=== PATIENT | male | born 1940 | race Caucasian/White ===

== ENCOUNTER 2016-05-03 13:56 | Inpatient (IN) | payer MEDICARE, BC ==
[~2016-05-03 13:56] MED LIST: ALLO300 PO; AMIO200 PO; ATOR20TA PO; DOCU1CAP39 PO; ECOT81TA2 PO; Hydrocodone/Acetaminophen PO; MAGN500T4 PO; METO25 PO; PLAV75TA PO; PROT40TA PO; THERM PO
[2016-05-03 18:00] VITALS: BP 150/84; PULSE 78; RESP 20; TEMP 98.6; O2SAT 97
[2016-05-03] MEDS ORDERED: NITROGLYCERIN 0.4 MG SL 25 TABS/BTL SL PRN (18:15)
[2016-05-03] MEDS ORDERED: ONDANSETRON HCL 4 MG/2 ML VIAL IV PUSH PRN (18:15)
[2016-05-03 19:00] VITALS: PULSE 72
[2016-05-03 20:00] VITALS: PULSE 66
[2016-05-03] MEDS: ALLOPURINOL 300 MG TAB PO SCH (20:00)
[2016-05-03 21:00] VITALS: BP 160/85; PULSE 62; PULSE 78; RESP 20; TEMP 98; O2SAT 97
[2016-05-03] MEDS: ATORVASTATIN 20 MG TAB PO SCH (21:00)
[2016-05-03] MEDS: NITROGLYCERIN 2% OINT 1 GM PACKET TOPICAL SCH (21:05)
[2016-05-03] MEDS: ATENOLOL 25 MG TAB PO SCH (21:16)
[2016-05-03] MEDS: ACETAMINOPHEN 325 MG TAB PO PRN (21:17)
[2016-05-03 22:00] VITALS: PULSE 70
[2016-05-03 23:00] VITALS: PULSE 68
[2016-05-04] VITALS (15 sets, daily range): BP systolic 78–158; BP diastolic 69–100; PULSE 62–78; RESP 18–20; TEMP 98–99; O2SAT 72–98
[2016-05-04] MEDS: NITROGLYCERIN 2% OINT 1 GM PACKET TOPICAL SCH ×4 (03:00→18:00)
[2016-05-04] MEDS ORDERED: ASPIRIN 81 MG CHEW TAB PO SCH ×2 (09:00→21:00)
[2016-05-04] MEDS: ACETAMINOPHEN 325 MG TAB PO PRN (09:34)
[2016-05-04] MEDS: ATENOLOL 25 MG TAB PO SCH (09:34)
[2016-05-04] MEDS: ALLOPURINOL 300 MG TAB PO SCH (09:35)
[2016-05-04] MEDS ORDERED: CLOPIDOGREL 75 MG TAB PO ONE (13:00)
--- NOTE | 2016-05-04 14:10 | MH ---
cc: AISHA CASTLE MD, SURYA P. MD MEYERS,MARIA ESTHER DATE OF ADMISSION: 05/03/2016 REFERRING PHYSICIAN: Dr. Jerrod Limon. HISTORY OF PRESENT ILLNESS: Mr. Roth is a very pleasant 74-year gentleman with a known history of coronary artery disease and aortic stenosis who is status post aortic valve replacement and two-vessel coronary artery bypass grafting by Dr. Valladares in July of 2015. Since that time, he has presented with recurrent episodes of chest pain and was recently evaluated by Dr. Limon at [facility] for presenting complaints of chest pain with minimal exertion and underwent a coronary angiogram on May 03, 2016 which revealed patent vein graft to the left anterior descending with a bifid initial course as well as a patent vein graft to the right coronary artery with critical ostial stenosis. He additionally had what appears to be a tissue aortic valve in place which is impinging on the left main as well as the right coronary artery ostium. Based on this, he was transferred here for further assessment and evaluation. At the present time, he is pain-free and stable with no evidence of ongoing ischemia or persistence complaints of. He denies any chest pain at the present time. PAST MEDICAL HISTORY: Significant for: 1. Aortic stenosis. 2. Coronary artery disease. 3. Hypertension. 4. Hyperlipidemia. PAST SURGICAL HISTORY: Remarkable for: 1. AVR CABG as described above in June of 2015. 2. Appendectomy. 3. Knee surgery. 4. Foot surgery. 5. Carpal tunnel release. ALLERGIES: THE PATIENT REPORTS NO KNOWN DRUG ALLERGIES EXCEPT FOR: 1. NOVOCAIN. 2. MRI PRECAUTIONS. ADMISSION MEDICATIONS: 1. Amiodarone. 2. Allopurinol. 3. Metoprolol. 4. Docusate. 5. Atorvastatin. 6. A multivitamin. 7. Aspirin. 8. Plavix. 9. Protonix. 10. Magnesium. SOCIAL HISTORY: Social history is remarkable for smoking one pack per day which he quit in 1973 as well as alcohol intake of at least one glass or wine a day. He denies any illicit drug use. REVIEW OF SYSTEMS: Review of systems as above. All other parameters are negative. PHYSICAL EXAMINATION: WEIGHT: He is 83.5 kilos. VITAL SIGNS: Blood pressure is 130/69 with a heart rate of 70 which is regular, respiratory rate is 18 and he is afebrile. HEAD, EYES, EARS, NOSE, THROAT: Normocephalic and atraumatic. Pupils round and reactive. Extraocular muscles intact. NECK: No cervical lymphadenopathy, carotid bruits or jugular venous distention. CARDIOVASCULAR: Regular rate and rhythm. Normal S1 and S2 without murmurs, rubs or gallops. LUNGS: Clear to auscultation bilaterally with good air exchange. CHEST: Well-healed median sternotomy incision with no underlying induration, erythema or dehiscence. ABDOMEN: The abdomen is soft, nontender and nondistended. Normoactive bowel sounds. No hepatosplenomegaly. EXTREMITIES: Bilateral lower extremity pulses are intact without cyanosis, clubbing or edema. No venous varicosities. NEUROLOGIC: Neurologically intact with no focal deficits. IMPRESSION: 1. Coronary artery disease. 2. Aortic stenosis status post AVR CABG. 3. Hypertension. 4. Hyperlipidemia. 5. Recurrent chest pain. PLAN: At this point, the patient is hemodynamically and clinically very stable. We will review his coronary angiograms from [facility] with Dr. Valladares. If in fact there is a percutaneous option available for the right coronary artery ostium, then that would be the ideal setting in efforts to avoid a reoperative median sternotomy; however, if that is not feasible, then he will need re-operation to bypass his right coronary artery as well as potentially to his circumflex artery. Again, will discuss this further with Dr. Valladares as well as with cardiology colleagues in terms of finding the ideal treatment modality for him. In the meantime, will maintain him in the hospital, monitor his vitals as well as his hemodynamics and further treatment depending upon above conversations. Thank you for allowing to participate in the care of this patient. Aisha ALMODOVAR /12:41 PM /12:56 PM
[2016-05-04] MEDS: ATORVASTATIN 20 MG TAB PO SCH (21:21)
[2016-05-05] VITALS (13 sets, daily range): BP systolic 130–150; BP diastolic 74–88; PULSE 64–78; RESP 17–20; TEMP 98–98.6; O2SAT 95–96
[2016-05-05] MEDS: NITROGLYCERIN 2% OINT 1 GM PACKET TOPICAL SCH ×2 (06:00)
[2016-05-05] MEDS: ALLOPURINOL 300 MG TAB PO SCH (09:32)
[2016-05-05] MEDS: ATENOLOL 25 MG TAB PO SCH (09:32)
--- NOTE | 2016-05-05 09:40 | PD.CAR.PN ---
CVT Progress Note Subjective/Hospital Course: 75/ male transfer from [facility] , HX CAD Aortic valve disease , underwent AVR with EPIC tissue valve , CABG X 2 SVG>LAD ( fair ) , SVG to RCA ( good) July [id number] by Dr Simone Valladares presented to ED [facility] recurrent episodes of chest pain with minimal exertion and underwent cardiac cath 05/03 revealed patent graft to the LAD, with patent vein graft to RCA with critical ostial stenosis cardiac films were reviewed by Dr Guan ( covering ) neg troponin, currently pain plan is to dc pt home, with f/u with Dr Valladares 05/15 copy of films and reports to Dr Valladares add imdur po Objective: GENERAL: SKIN: Warm and dry. HEAD: Normocephalic. EYES: No scleral icterus. No injection or drainage. NECK: Supple, trachea midline. No JVD or lymphadenopathy. CARDIOVASCULAR: Regular rate and rhythm without murmurs, gallops, or rubs. RESPIRATORY: Breath sounds equal bilaterally. No accessory muscle use. GASTROINTESTINAL: Abdomen soft, non-tender, nondistended. MUSCULOSKELETAL: No cyanosis, or edema. BACK: Nontender without obvious deformity. No CVA tenderness. Vital Signs Date Time Temp Pulse Resp B/P Pulse Ox O2 Delivery O2 Flow Rate FiO2 05/05/16 06:32 98.0 64 20 150/88 95 05/05/16 06:00 75 05/05/16 05:00 76 05/05/16 04:16 75 05/05/16 03:00 74 05/05/16 02:10 77 05/05/16 01:00 66 05/05/16 00:00 98.6 71 20 130/74 95 05/05/16 00:00 66 05/04/16 23:02 70 05/04/16 22:00 73 05/04/16 21:00 70 05/04/16 20:00 72 05/04/16 20:00 98.5 69 20 155/95 95 05/04/16 19:00 66 05/04/16 15:45 99.0 76 18 124/76 98 05/04/16 15:45 74 05/04/16 12:00 71 05/04/16 12:00 98.6 71 18 132/78 97 Telemetry: NSR (1) S/P AVR (aortic valve replacement) (2) S/P CABG x 2 Plan: continue plavix, ASA, statin BB (3) Recurrent chest pain Plan: add imdur f/u Dr Valladares next week Nancy Carroll May 05, 2016 09:40
[2016-05-05] MEDS ORDERED: NITR0.4S SL (09:46)
[2016-05-05] MEDS ORDERED: Aspirin Chew PO (09:46)
[2016-05-05] MEDS ORDERED: ATEN25TA PO (09:46)
[2016-05-05] MEDS ORDERED: ISOS30TA3 PO (09:48)
--- NOTE | 2016-05-05 10:13 | HHI.DS ---
Discharge Summary Admission Date May 03, 2016 at 17:51 Discharge Date: May 05, 2016 Admitting Diagnosis chest pain (1) Recurrent chest pain Diagnosis: Secondary (2) Hx of CABG Diagnosis: Principal (3) HX of AVR Diagnosis: Principal Brief History 75/ male transfer from [facility] , HX CAD Aortic valve disease , underwent AVR with EPIC tissue valve , CABG X 2 SVG>LAD ( fair ) , SVG to RCA ( good) July [id number] by Dr Simone Valladares presented to ED [facility] recurrent episodes of chest pain with minimal exertion and underwent cardiac cath 05/03 revealed patent graft to the LAD, with patent vein graft to RCA with critical ostial stenosis cardiac films were reviewed by Dr Guan ( covering ) neg troponin, currently pain Hospital Course cardiac films were reviewed by Dr Guan ( covering ) neg troponin, currently pain plan is to dc pt home, with f/u with Dr Valladares 05/15 copy of films and reports to Dr Valladares add imdur po, increase atenolol to bid Pt Condition on Discharge: Good Discharge Disposition: Discharge Home Discharge Instructions DIET: Follow Instructions for: Heart Healthy Diet Activities you can perform: Regular-No Restrictions Follow up Referrals: Appointment for Follow Up - 1 Week with Kasey Valladares MD PCP Follow-up - 2 Weeks with Gaye Morrison MD New Medications: Isosorbide Mononitrate ER (Isosorbide Mononitrate ER) 30 Mg Jose Daniel 30 MG PO DAILY Prevent Chest Pain #30 Ref 1 TAB Atenolol (Atenolol) 25 Mg Tab 25 MG PO BID Blood Pressure Management #60 Ref 1 TAB Nitroglycerin SL (Nitrostat SL) 0.4 Mg Subl 0.4 MG SL UNSCH max 3 doses within 15 min for chest pain PRN CHEST PAIN #25 BOTTLE ([Aspirin Chew]) 81 MG CHEW 81 MG PO HS #100 Ref 1 TAB.CHEW Continued Medications: Allopurinol (Zyloprim 300 Mg Tab) 300 Mg Tab 300 MG PO DAILY TAB Atorvastatin 20 mg (Atorvastatin 20 mg tab) 20 Mg Tab 20 MG PO DAILY Days 30 TAB Clopidogrel Bisulfate (Plavix) 75 Mg Tab 75 MG PO DAILY last dose was on july 10 TAB Discontinued Medications: Amiodarone HCl (Cordarone 200 Mg Tab) 200 Mg Tab 200 MG PO BID Regulate Heart Beat #28 Ref 0 TAB Aspirin (Ecotrin Low Strength) 81 Mg Tabec 162 MG PO DAILY heart Days 30 TAB.EC Docusate Sodium (Colace 100 Mg Cap) 100 Mg Cap 100 MG PO BID Constipation #28 Ref 0 CAP Magnesium (Magnesium) 500 Mg Tab 250 MG PO DIRECTED pt takes on mon,thu,thursday TAB Metoprolol Tartrate 25 mg (Metoprolol Tartrate 25 mg) 25 Mg Tab 12.5 MG PO 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
== END 2016-05-05 13:23 | disposition home or self-care (01) | DRG 303 ==
LOC: HCIN 17:51
PROVIDERS: ADMIT Thoracic Surgery (Cardiothoracic Vascular Surgery); ATTEND Thoracic Surgery (Cardiothoracic Vascular Surgery)
DX: I25.10 Atherosclerotic heart disease of native coronary artery without angina pectoris (principal); I10 Essential (primary) hypertension; E78.5 Hyperlipidemia, unspecified; Z95.1 Presence of aortocoronary bypass graft; Z87.891 Personal history of nicotine dependence; Z09 Encounter for follow-up examination after completed treatment for conditions other than malignant neoplasm; Z95.2 Presence of prosthetic heart valve

== ENCOUNTER 2016-05-28 06:33 | Day surgery (SDC) | payer MEDICARE, BC ==
[~2016-05-28] VITALS: Ht 172.7 cm; Wt 81.9 kg
[2016-05-28] VITALS (12 sets, daily range): BP systolic 120–187; BP diastolic 59–105; PULSE 56–90; RESP 16–20; TEMP 97.7–98; O2SAT 96–97
[~2016-05-28 06:33] MED LIST changes: -AMIO200 PO; +ATEN25TA PO; +Aspirin Chew PO; -DOCU1CAP39 PO; -ECOT81TA2 PO; -Hydrocodone/Acetaminophen PO; +ISOS30TA3 PO; -MAGN500T4 PO; -METO25 PO; +NITR0.4S SL; -PROT40TA PO; -THERM PO
[2016-05-28] MEDS ORDERED: ATOR20TA15 PO (07:14)
[2016-05-28] MEDS ORDERED: ALLO300T2 PO (07:14)
[2016-05-28] MEDS ORDERED: PLAV75TA29 PO (07:14)
[2016-05-28 07:25] LABS: AUTOMATED NEUTROPHIL # 5.9 TH/MM3 (1.8-7.7); BASOPHIL % 0.5 % (0.0-2.0); EOSINOPHIL # 0.1 TH/MM3 (0-0.4); EOSINOPHIL % 1.6 % (0.0-4.0); HEMATOCRIT 48.1 % (39.0-51.0); HEMO FLAGS DIFF FINAL; LYMPH % 18.1 % (9.0-44.0); LYMPHOCYTE # 1.5 TH/MM3 (1.0-4.8); MEAN CELL VOLUME 94.6 FL (80.0-100.0); MEAN CORPUSCULAR HEMOGLOBIN 31.7 PG (27.0-34.0); MEAN CORPUSCULAR HGB CONC 33.5 % (32.0-36.0); MONO % 8.4 % (0.0-8.0); NEUT % 71.4 % (16.0-70.0); PLATELET COUNT 150 TH/MM3 (150-450); RED BLOOD COUNT 5.09 MIL/MM3 (4.50-5.90); RED CELL DISTRIBUTION WIDTH 14.4 % (11.6-17.2); WHITE BLOOD COUNT 8.2 TH/MM3 (4.0-11.0)
[2016-05-28 07:35] LABS: APTT (PATIENT) 27.7 SEC (24.3-30.1); PROTHROMBIN TIME - PATIENT 11.1 SEC (9.8-11.6)
[2016-05-28 07:50] LABS: BICARBONATE 29.8 MEQ/L (21.0-32.0); POTASSIUM 3.7 MEQ/L (3.5-5.1)
[2016-05-28] MEDS ORDERED: HEPARIN-NS/PF INJ 500 ML ONE ×2 (08:22→10:05)
[2016-05-28] MEDS ORDERED: VERAPAMIL HCL 5 MG/2 ML VIAL ONE (08:23)
[2016-05-28] MEDS ORDERED: HEPARIN SODIUM - IV 10,000 UNITS/10 ML VIAL ONE ×2 (08:23→11:15)
[2016-05-28] MEDS ORDERED: MIDAZOLAM HCL 2 MG/2 ML VIAL ONE (08:23)
[2016-05-28] MEDS ORDERED: IOHEXOL 350 MG/ML 100 ML BTL (for Cath Lab) OTHER ONE (12:00)
[2016-05-28] MEDS ORDERED: MISC INFORMATION XX ONE (12:15)
[2016-05-28] MEDS ORDERED: ATROPINE SULFATE 1 MG/ML VIAL IV PRN (12:15)
[2016-05-28] MEDS ORDERED: SODIUM CHLOR 0.9% 250 ML INJ 250 ML IV PRN (12:15)
[2016-05-28] MEDS ORDERED: NITROGLYCERIN 0.4 MG SL 25 TABS/BTL SL PRN (12:15)
[2016-05-28] MEDS ORDERED: ONDANSETRON HCL 4 MG/2 ML VIAL IV PRN (12:15)
[2016-05-28] MEDS ORDERED: SODIUM CHLORIDE 0.9% FLUSH 10 ML FLUSH IV FLUSH PRN (12:15)
--- NOTE | 2016-05-28 12:16 | EKG ---
Date Performed: 05/28/2016 Time Performed: 07:47:20 PTAGE: 75 years EKG: Sinus rhythm with frequent PVCs Possible left anterior fascicular block LVH with secondary repolarization abnorma lity Extensive ST-T changes may be due to hypertrophy and/or ischemia Abnormal ECG PREVIOUS TRACING : 05/28/2016 07.31 DOCTOR: Julius Gabriel Interpretating Date/Time 05/28/2016 12:14:00
[2016-05-28] MEDS ORDERED: SODIUM CHLOR 0.9% 1000 ML INJ 1,000 ML IV SCH (12:30)
[2016-05-28] MEDS ORDERED: hydrALAZINE HCL 20 MG/ML VIAL IV PUSH PRN (12:45)
[2016-05-28] MEDS: ATENOLOL 25 MG TAB PO SCH (20:41)
[2016-05-28] MEDS: SODIUM CHLORIDE 0.9% FLUSH 10 ML FLUSH IV FLUSH SCH (20:44)
[2016-05-28] MEDS ORDERED: ASPIRIN 81 MG CHEW TAB PO SCH (21:00)
[2016-05-28] MEDS ORDERED: ATORVASTATIN 20 MG TAB PO SCH (21:00)
--- NOTE | 2016-05-28 22:56 | MA ---
cc: RANDAL ENCINAS,URIEL SHINE MD DATE: May 28, 2016 PROCEDURE Saphenous vein graft angiogram, balloon angioplasty of the SVG to RCA with an inability to stent, moderate sedation 120 minutes PREPROCEDURE DIAGNOSIS Unstable angina, [place] angina class III. POSTPROCEDURE DIAGNOSIS Severe ostial SVG to RCA, coronary artery disease, status post balloon angioplasty with an inability to stent. MEDICATIONS GIVEN Versed 0.5 mg. Fentanyl 75 mcg Heparin 8000 units. CONTRAST 100 mL. FLUOROSCOPY 58 minutes. MODERATE SEDATION 120 minutes PROCEDURAL SUMMARY Holger Roth is a pleasant 75 year-old male who was seen in the outpatient setting for consideration of redo CABG versus possible PCI of SVG to RCA. He has had significant angina. He would like to avoid redo CABG but he has other significant lesions other than SVG to RCA. Because of this, I offered PCI of this lesion with the understanding that this may not relieve his symptoms. He understood the risks, benefits and alternatives that this was a high-risk lesion and consented as such. He was brought to the lab and prepped in the usual sterile fashion. Right radial artery was attempted to be accessed but was unable to. Right femoral artery was accessed using a modified Seldinger technique and placement of a 6-[place] sheath. This was easily aspirated and flushed. A multipurpose guide was then advanced over a J-wire to the ascending aorta. Due to an inability to torque the guide, because of calcification within the iliac and aorta, the multipurpose guide was removed. The 6-[place] sheath was then exchanged for a long 6-[place] sheath. Multipurpose guide was once again placed in the ascending aorta. I was unable to torque the guide to allow for an appropriate angle on accessing the vein graft to PDA. This was then exchanged for an AL 0.75 guide which was also unable to engage the lesion. This was then exchanged for a JR-4 guide. On the angiogram, there is a very small channel at the ostium of the SVG to RCA. This is an extremely complex lesion because of this. I was not able to intervene on the [place] vessel because of its location in comparison to the sewing ring of the aortic valve. It was felt that it was reasonable to attempt possible intervention on the ostium of the SVG to the RCA. Two BMW wires were attempted to find a small channel but were unable to. A run through wire was then advanced through the small channel into the distal SVG. Because of the significance of the lesion, it was not felt that a spider filter wire was able to be advanced through, so a compliant balloon (1.5 x 10), was then placed across the lesion and inflated. This created somewhat more of a channel and a 5 millimeter spider filter wire was placed in the body of the SVG. A Compliant balloon (2 x 6) was then advanced and inflated across the lesion. A Promus Premiere drug-eluding stent (4 x 12) was then attempted to cross the lesion but was unable to. I then attempted to increase our channel size using a noncompliant balloon (3 x 10) but was unable to. With the advancement of the balloon, this backed up the spider wire. The retrieval catheter was then placed in an attempt to recapture the filter and advance but was unable to. At this time a significant amount of dye and fluoroscopy had been used and my concern was that this lesion might be a suture lesion as it had not expanded at all with ballooning, and CABG was only about a year old. At this time the spider filter wire was recaptured and removed. Final angiography shows no disruption of the vessel with flow to the RCA and retrograde to the proximal RCA. It was felt at this time that the lesion was not intervenable upon and that the patient should be reconsidered for coronary artery bypass grafting. 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 IMPRESSION 1. Unstable angina, [place] anginal class III. 2. Balloon angioplasty of ostial SVG to RCA with an inability to further intervene or stent the lesion. 3. Previous bioprosthetic AVR which appears to interfere with ostium of the RCA and left main. RECOMMENDATIONS I was unable to intervene on Mr. Roth's SVG to RCA. I discussed this with Dr. Valladares who will see the patient in consideration of repeat coronary artery bypass grafting. He will be watched overnight and if stable, he can be discharged home. Decision on coronary artery bypass grafting will be discussed between the patient and Dr. Valladares. Thank you for allowing me to see Holger Roth. If there are any questions, please do not hesitate to call. Randal Encinas DO VGP/LAURA /8:41 PM /10:35 PM [email or web address]
[2016-05-29] VITALS (14 sets, daily range): BP systolic 128–147; BP diastolic 73–92; PULSE 74–88; RESP 16–18; TEMP 97.7–98.1; O2SAT 95–98
[2016-05-29 06:05] LABS: AUTOMATED NEUTROPHIL # 6.5 TH/MM3 (1.8-7.7); BASOPHIL % 0.4 % (0.0-2.0); EOSINOPHIL # 0.1 TH/MM3 (0-0.4); EOSINOPHIL % 1.2 % (0.0-4.0); HEMATOCRIT 40.4 % (39.0-51.0); HEMO FLAGS DIFF FINAL; LYMPH % 14.4 % (9.0-44.0); LYMPHOCYTE # 1.2 TH/MM3 (1.0-4.8); MEAN CELL VOLUME 93.6 FL (80.0-100.0); MEAN CORPUSCULAR HEMOGLOBIN 32.1 PG (27.0-34.0); MEAN CORPUSCULAR HGB CONC 34.3 % (32.0-36.0); MONO % 7.7 % (0.0-8.0); NEUT % 76.3 % (16.0-70.0); PLATELET COUNT 134 TH/MM3 (150-450); RED BLOOD COUNT 4.31 MIL/MM3 (4.50-5.90); RED CELL DISTRIBUTION WIDTH 14.1 % (11.6-17.2); WHITE BLOOD COUNT 8.5 TH/MM3 (4.0-11.0)
[2016-05-29 06:34] LABS: POTASSIUM 3.6 MEQ/L (3.5-5.1)
[2016-05-29] MEDS: ATENOLOL 25 MG TAB PO SCH (08:07)
[2016-05-29] MEDS: SODIUM CHLORIDE 0.9% FLUSH 10 ML FLUSH IV FLUSH SCH (08:08)
[2016-05-29] MEDS ORDERED: CLOPIDOGREL 75 MG TAB PO SCH (09:00)
--- NOTE | 2016-05-29 09:35 | PD.CARD.PN ---
Subjective Subjective Remarks No chest pain, no shortness of breath, up and ambulating Objective Medications Current Medications Medications (Trade) Dose Ordered Sig/Javy Route Start Time Stop Time Status Last Admin (Tenormin) 25 mg BID PO 05/28/16 21:00 05/29/16 08:07 (Lipitor) 20 mg HS PO 05/28/16 21:00 05/28/16 20:42 (Plavix) 75 mg DAILY PO 05/29/16 09:00 05/29/16 08:07 (Nitrostat Sl) 0.4 mg UNSCH PRN SL 05/28/16 12:15 (Aspirin Chew) 81 mg HS PO 05/28/16 21:00 05/28/16 20:42 (NS Flush) 2 ml BID IV FLUSH 05/28/16 21:00 05/29/16 08:08 (NS Flush) 2 ml UNSCH PRN IV FLUSH 05/28/16 12:15 Atropine Sulfate 0.5 mg 0.5 mg UNSCH PRN IV 05/28/16 12:15 (NS 250 ml Inj) 250 ml @ 500 mls/hr ONCE PRN IV 05/28/16 12:15 05/29/16 12:14 (Zofran Inj) 4 mg Q4H PRN IV 05/28/16 12:15 (Apresoline Inj) 10 mg Q6HR PRN IV PUSH 05/28/16 12:45 05/28/16 13:09 Vital Signs / I&O Vital Signs Date Time Temp Pulse Resp B/P Pulse Ox O2 Delivery O2 Flow Rate FiO2 05/29/16 09:12 80 05/29/16 08:25 85 05/29/16 07:23 74 05/29/16 07:23 97.7 81 18 147/92 95 05/29/16 06:00 76 05/29/16 05:00 80 05/29/16 04:00 83 05/29/16 04:00 98.1 85 16 128/74 96 05/29/16 03:00 82 05/29/16 02:00 80 05/29/16 01:00 80 05/29/16 00:00 97.9 87 18 129/74 98 05/29/16 00:00 75 05/28/16 23:00 80 05/28/16 22:00 72 05/28/16 21:00 82 05/28/16 20:00 90 05/28/16 18:00 87 05/28/16 17:00 88 05/28/16 16:00 56 05/28/16 15:00 98.0 87 20 120/64 96 05/28/16 15:00 84 05/28/16 14:00 125/59 05/28/16 14:00 85 05/28/16 13:15 165/69 05/28/16 13:00 97.7 75 20 187/90 97 05/28/16 12:18 96 Room Air I/O 05/28/16 05/28/16 05/28/16 05/29/16 05/29/16 05/29/16 07:00 15:00 23:00 07:00 15:00 23:00 Intake Total 240 ml Output Total 250 ml Balance -10 ml Intake Oral 240 ml Output Urine Total 250 ml Physical Exam GENERAL: NAD, AAOx3 SKIN: Warm and dry. HEAD: Atraumatic. Normocephalic. EYES: Pupils equal and round. No scleral icterus. No injection or drainage. ENT: No nasal bleeding or discharge. Mucous membranes pink and moist. NECK: Trachea midline. No JVD. CARDIOVASCULAR: Regular rate and rhythm. RESPIRATORY: No accessory muscle use. Clear to auscultation. Breath sounds equal bilaterally. GASTROINTESTINAL: Abdomen soft, non-tender, nondistended. Hepatic and splenic margins not palpable. MUSCULOSKELETAL: Extremities without clubbing, cyanosis, or edema. No obvious deformities. Right femoral no hematoma/bruit, neurovascularly intact distally NEUROLOGICAL: Awake and alert. No obvious cranial nerve deficits. Motor grossly within normal limits. Five out of 5 muscle strength in the arms and legs. Normal speech. PSYCHIATRIC: Appropriate mood and affect; insight and judgment normal. Laboratory Laboratory Tests Test 05/29/16 05:25 White Blood Count 8.5 TH/MM3 Red Blood Count 4.31 MIL/MM3 Hemoglobin 13.9 GM/DL Hematocrit 40.4 % Mean Corpuscular Volume 93.6 FL Mean Corpuscular Hemoglobin 32.1 PG Mean Corpuscular Hemoglobin 34.3 % Concent Red Cell Distribution Width 14.1 % Platelet Count 134 TH/MM3 Mean Platelet Volume 9.6 FL Neutrophils (%) (Auto) 76.3 % Lymphocytes (%) (Auto) 14.4 % Monocytes (%) (Auto) 7.7 % Eosinophils (%) (Auto) 1.2 % Basophils (%) (Auto) 0.4 % Neutrophils # (Auto) 6.5 TH/MM3 Lymphocytes # (Auto) 1.2 TH/MM3 Monocytes # (Auto) 0.7 TH/MM3 Eosinophils # (Auto) 0.1 TH/MM3 Basophils # (Auto) 0.0 TH/MM3 CBC Comment DIFF FINAL Differential Comment Sodium Level 142 MEQ/L Potassium Level 3.6 MEQ/L Chloride Level 108 MEQ/L Carbon Dioxide Level 28.0 MEQ/L Anion Gap 6 MEQ/L Blood Urea Nitrogen 15 MG/DL Creatinine 0.90 MG/DL Estimat Glomerular Filtration 82 ML/MIN Rate Random Glucose 98 MG/DL Calcium Level 8.7 MG/DL Assessment and Plan Problem List: (1) CAD (coronary artery disease) (2) S/P CABG x 2 (3) S/P AVR (aortic valve replacement) (4) Recurrent chest pain (5) Hyperlipidemia Assessment and Plan 1) Significant CAD with ostial SVG to RCA stenosis s/p POBA, but unable to further intervene 2) Dr. Valladares will discuss with him consideration of repeat surgery 3) Plan discharge today 4) Con't current medical management of CAD Randal Loving DO May 29, 2016 09:35
--- NOTE | 2016-05-29 09:40 | HHI.DS ---
Discharge Summary Admission Date 05/28/16 Discharge Date: May 29, 2016 Admitting Diagnosis CAD s/p POBA of SVG to RCA Hx CABG x2 Hx AVR (1) CAD (coronary artery disease) Diagnosis: Principal (2) S/P CABG x 2 Diagnosis: Secondary (3) S/P AVR (aortic valve replacement) Diagnosis: Secondary (4) Recurrent chest pain Diagnosis: Principal (5) Hyperlipidemia Diagnosis: Secondary Procedures Cardiac catheterization (05/28/16) planned PCI of SVG to RCA but only able to POBA , concern for possible suture lesion. Discussed with patient and Dr. Valladares, will consider repeat surgery for RCA/LCx disease. CBC/BMP: 05/29/16 0525 05/29/16 0525 Significant Findings Laboratory Tests Test 05/28/16 05/29/16 07:12 05:25 Neutrophils (%) (Auto) 71.4 % 76.3 % (16.0-70.0) (16.0-70.0) Monocytes (%) (Auto) 8.4 % (0.0-8.0) Estimat Glomerular Filtration 70 ML/MIN (>89) 82 ML/MIN (>89) Rate Red Blood Count 4.31 MIL/MM3 (4.50-5.90) Platelet Count 134 TH/MM3 (150-450) Chloride Level 108 MEQ/L (98-107) Pt Condition on Discharge: Good Discharge Disposition: Discharge Home Discharge Instructions DIET: Follow Instructions for: Heart Healthy Diet Activities you can perform: See Additionl Instruction Additional Activity Instructio: No lifting more than 10 lbs for 3 days Randal Loving DO May 29, 2016 09:40
[2016-05-29 11:55] LABS: BLOOD, URINE NEG (NEG); GLUCOSE,URINE NEG (NEG); KETONE, URINE NEG (NEG); NITRITE,URINE NEG (NEG); PH, URINE 5.5 (5.0-8.5); URINE COLOR YELLOW (YELLW/STRAW)
[2016-05-29 11:57] LABS: COMMENT (UR) CULT NOT INDICATED; CULTURE IF INDICATED CULT NOT INDICATED
--- NOTE | 2016-05-29 12:28 | RADRPT ---
EXAM DATE/TIME: 05/29/2016 11:27 [facility] COMPARISON: No previous studies available for comparison. INDICATIONS : Pre-Op CABG. MEDICAL HISTORY : Hypercholesterolemia. Hypertension. TIA. Coronary artery disease. Kidney stones. Skin cancer. SURGICAL HISTORY : Tonsillectomy.Appendectomy. Cardiac stents. ENCOUNTER: Subsequent ACUITY: 1 day PAIN SCORE: 0/10 LOCATION: Bilateral legs. TECHNIQUE: Venous ultrasound of the left and right leg was performed from the inguinal ligament to the proximal calf. Real-time, color Doppler and spectral tracing, compression and augmentation techniques were us ed. FINDINGS: RIGHT LEG: There is normal compressibility of the deep venous system from the inguinal region to the proximal ca lf. No echogenic clot is seen in the lumen of the common femoral, femoral, popliteal, and posterior tibial veins. There is a normal response of the venous system to proximal and distal augmentation an d respiration. LEFT LEG: There is normal compressibility of the deep venous system from the inguinal region to the proximal ca lf. No echogenic clot is seen in the lumen of the common femoral, femoral, popliteal, and posterior tibial veins. There is a normal response of the venous system to proximal and distal augmentation an d respiration. CONCLUSION: Normal examination. Cristopher Rick MD on May 29, 2016 at 12:26 Board Certified Radiologist. This report was verified electronically.
--- NOTE | 2016-05-29 12:31 | RADRPT ---
EXAM DATE/TIME: 05/29/2016 11:37 [facility] COMPARISON: US LEG BILATERAL VENOUS DOPPLER, May 29, 2016, 11:27. INDICATIONS : Pre-Op CABG. MEDICAL HISTORY : Hypercholesterolemia. Hypertension. TIA. Coronary artery disease. Kidney stones. Skin cancer. SURGICAL HISTORY : Appendectomy. Tonsillectomy. CABG Cardiac stents. Aortic valve replacement. ENCOUNTER: Subsequent ACUITY: 1 day PAIN SCORE: 0/10 LOCATION: Bilateral legs. GREATER SAPHENOUS VEIN THIGH: PROXIMAL: Right 4 mm Left 4 mm MID: Right 2 mm Left Non-visualized DISTAL: Right 1 mm Left Non-visualized CALF: PROXIMAL: Right 1 mm Left Non-visualized MID: Right 1 mm Left Non-visualized DISTAL: Right 2 mm Left Non-visualized FINDINGS: The venous system of the lower extremities are patent by color Doppler imaging. Measurements of the leg veins (in mm) are listed above. CONCLUSION: 1. Nonvisualization of the greater saphenous system on the left. 2. Size measurements on the right are given above. Ludwin Gonzalez MD on May 29, 2016 at 12:29 Board Certified Radiologist. This report was verified electronically.
--- NOTE | 2016-05-29 14:18 | RADRPT ---
EXAM DATE/TIME: 05/29/2016 13:23 [facility] COMPARISON: No previous studies available for comparison. INDICATIONS : Evaluate for pneumonia, pneumothorax, and communicable disease. Preop for CABG. MEDICAL HISTORY : Hypercholesterolemia. Hypertension TIA. Coronary artery disease. Kidney stones. Skin cancer. SURGICAL HISTORY : Appendectomy. Tonsillectomy. CABG. TIA. Coronary artery disease. Kidney stones. Skin cancer. ENCOUNTER: Subsequent ACUITY: 1 day PAIN SCORE: 0/10 LOCATION: Bilateral chest FINDINGS: PA and lateral views of the chest demonstrate the lungs to be symmetrically aerated without evidence of mass, infiltrate or effusion. No evidence of pneumothorax. The cardiomediastinal contours are unr emarkable. Evidence of prior median sternotomy and cardiac valve replacement with 6 intact sternal w elena sutures. Mild degenerative changes in the mid thoracic spine. CONCLUSION: The lungs are clear. Israel Harvey MD on May 29, 2016 at 14:16 Board Certified Radiologist. This report was verified electronically.
--- NOTE | 2016-05-29 16:02 | MB ---
cc: KASEY VALLADARES DATE OF CONSULTATION: 05/29/2016 REASON FOR CONSULTATION: A 74-year-old patient of Dr. Inder Gao, who underwent aortic valve replacement two-vessel coronary artery bypass graft by Dr. Harper in July 2015. He has presented a couple times with recurrent episodes of chest pain. He was reevaluated back in April for chest pain with minimal exertion underwent coronary angiogram May 03, 2016, by Dr. Jerrod Gao, revealed patent vein graft to the LAD with a bifid initial course as well as a patent vein graft to the RCA with a critical ostial stenosis. He apparently had what appeared to be a tissue aortic valve in place which was impinging upon the left main as well as the RCA. He was stabilized medically and then brought back as an outpatient by Dr. Loving for plain balloon angioplasty to the saphenous vein graft, to the right coronary artery with an inability to stent. Severe ostial saphenous vein graft to the RCA and again inability to stent. The patient was then again reviewed by Dr. Kasey Valladares and evaluated for possible redo coronary artery bypass grafting and evaluated for bypass grafting redo to the RCA and the LAD. At this time the patient wants to come in as an outpatient next week to bring his significant other and discuss surgical options at that time. PAST MEDICAL HISTORY: 1. The patient's other past medical history includes aortic stenosis. 2. Coronary artery disease 3. Hypertension 4. Hyperlipidemia. PAST SURGICAL HISTORY: 1. Surgeries include aortic valve replacement. 2. Coronary artery bypass grafting x2 in July 2015 3. The patient had a coronary angiogram May 03, [address] Jerrod Ricci. 4. Then the patient underwent plain balloon angioplasty sepsis vein graft to the RCA on May 28, 2016 5. Other surgeries include appendectomy. 6. Knee surgery. 7. Foot surgery. 8. Carpal tunnel release. ALLERGIES NOVOCAINE MRI PRECAUTIONS. MEDICATIONS home meds include; 1. Allopurinol 2. Atenolol 3. Atorvastatin. 4. Nitro. 5. Aspirin. 6. Plavix. REVIEW OF SYSTEMS IN GENERAL: No night sweats, fever, heat and cold intolerance. SKIN: No psoriasis, itching or hives. HEAD, EYES, EARS, NOSE, AND THROAT: No blurred vision, hearing loss. RESPIRATORY: No cough, shortness of breath. CARDIOVASCULAR SYSTEM: Positive for recent chest pain. No paroxysmal nocturnal dyspnea. No orthopnea. GASTROINTESTINAL: No diarrhea, vomiting. Genitourinary: No burning frequency, urgency CENTRAL NERVOUS SYSTEM: No history of TIA, CVA, seizure disorder. PHYSICAL EXAMINATION: VITAL SIGNS: On exam blood pressure 140/80, heart rate 72, temperature max 98.1. IN GENERAL: Patient is awake, alert, no acute distress. HEAD, EYES, EARS, NOSE, AND THROAT: Head is normocephalic, atraumatic. Pupils equal and reactive. Oral mucosa pink, moist. NECK: Supple. No JVD. HEART: Heart sounds S1-S2 regular rate and rhythm. No rubs, murmurs, gallops. LUNGS: Clear to auscultation. No wheezes, rales or rhonchi. ABDOMEN: The abdomen is soft, nontender. No masses or organomegaly. EXTREMITIES: No cyanosis, clubbing or edema. LABORATORY FINDINGS Shows some hemoglobin 13, hematocrit of 40, white cell count 8.5, platelet count 134, sodium 142, potassium 3.6, BUN of 15, creatinine 0.90, INR 1.0. Urinalysis unremarkable. MRSA screen negative. IMAGING STUDIES Includes a chest x-ray which no evidence of mass, infiltrate or effusion, prior median sternotomy a cardiac valve replacement with intact sternal wires. Vein ultrasound no DVT. The patient had prior carotid ultrasound in June 2015 which was unremarkable. IMPRESSION This is a gentleman that has history of aortic valve replacement 23 epic tissue valve coronary artery bypass graft x2 in July 24, 2015. SVG to the LAD and saphenous vein graft to the RCA. The patient had recurrent chest pain underwent cardiac cath by Dr. Jerrod Gao which showed severe ostial lesion. An attempt was made to balloon angioplasty of the ostial saphenous vein graft to the RCA with inability to further intervene or stent the lesion and at the bioprosthetic AVR which appears to interfere with the ostium of the right coronary artery and the left main. The patient has been offered redo coronary artery bypass grafting x2. He will present to our office next week with his significant other for further consultation. Repeat lab work and be drawn at that time and further preoperative consents discussed at that time. Thank you STS data will also be to enter into the electronic record. Dictated by ASHA Keita Kasey MD Amadeo Adler /3:26 PM /7:39 AM
== END 2016-05-29 13:42 | disposition home or self-care (01) ==
LOC: HDOC 06:33 → HDIC 06:33 → HCIS 12:58 → HDOC 05-29 13:42
PROVIDERS: ATTEND Nuclear Medicine Nuclear Cardiology
DX: I20.0 Unstable angina (principal); I70.0 Atherosclerosis of aorta; Z95.1 Presence of aortocoronary bypass graft; Z95.2 Presence of prosthetic heart valve; R07.9 Chest pain, unspecified; E78.5 Hyperlipidemia, unspecified; I10 Essential (primary) hypertension; Z79.01 Long term (current) use of anticoagulants; Z79.899 Other long term (current) drug therapy
CPT/HCPCS: 71020; 80048; 81001; 85002; 85025; 85610; 85730; 87641; 92920; 93005; 93454; 93970; 93998; C1725; C1769; C1874; C1884; C1887; C1893; J0360; J1644; J2250; J3010; J7030; Q9967

== ENCOUNTER 2016-06-03 12:14 | Inpatient (IN) | payer MEDICARE, BC ==
[~2016-06-03] VITALS: Ht 172.7 cm; Wt 83.6 kg
[~2016-06-03 12:14] MED LIST changes: -ALLO300 PO; +ALLO300T2 PO; -ATOR20TA PO; +ATOR20TA15 PO; -ISOS30TA3 PO; -PLAV75TA PO; +PLAV75TA29 PO
[2016-06-10] VITALS (10 sets, daily range): BP systolic 105–154; BP diastolic 52–90; PULSE 70–88; RESP 12–20; TEMP 98–99; O2SAT 90–97
[2016-06-10] MEDS ORDERED: SODIUM CHLORIDE 0.9% FLUSH 10 ML FLUSH IV FLUSH PRN (06:30)
[2016-06-10] MEDS ORDERED: methylPREDNISolone SOD SUCC 125 MG/2 ML VIAL ONE (06:44)
[2016-06-10] MEDS ORDERED: INSULIN REGULAR 100 UNITS in NS 100 ML IV SCH (06:45)
[2016-06-10] MEDS ORDERED: CHLORHEXIDINE GLUCONATE 2 % 1 PACK (2 CLOTHS) TOPICAL PRN (06:45)
[2016-06-10] MEDS ORDERED: INSULIN HUMAN REGULAR 1,000 UNITS/10 ML VIAL SQ PRN (06:45)
[2016-06-10] MEDS ORDERED: SODIUM CHLORID 0.9% 500 ML IV PRN (06:45)
[2016-06-10] MEDS ORDERED: CEFAZOLIN 500 MG in NS IRR BTL 500 ML IRRIGATION SCH (06:45)
[2016-06-10] MEDS ORDERED: POVIDONE IODINE 5% (ANTISEPSIS KIT) 4 APPLICATIONS EACH NARE PRN (06:45)
[2016-06-10] MEDS ORDERED: PAPAVERINE 60 MG-NITROGLYCERIN 100 MCG-DILTIAZEM 100 MG in NS 100 ML IRRIGATION SCH ×4 (06:45)
[2016-06-10] MEDS ORDERED: METOPROLOL TARTRATE 25 MG TAB PO SCH (06:45)
[2016-06-10] MEDS ORDERED: METOPROLOL TARTRATE 25 MG TAB PO PRN (06:45)
[2016-06-10] MEDS ORDERED: LACTATED RINGER'S 1000 ML IV PRN (06:45)
[2016-06-10] MEDS ORDERED: CHLORHEXIDINE GLUCONATE 4% SOLN 120 ML BTL TOPICAL SCH (06:45)
[2016-06-10] MEDS ORDERED: ceFAZolin 2 GM PREMIX 50 ML IV SCH (06:45)
[2016-06-10] MEDS ORDERED: ceFAZolin INJ 1,000 MG VIAL ONE (06:45)
[2016-06-10] MEDS ORDERED: HEPARIN SODIUM - IV 10,000 UNITS/10 ML VIAL ONE ×2 (06:47→07:23)
[2016-06-10] MEDS ORDERED: ASPI81CH CHEW (06:50)
[2016-06-10] MEDS ORDERED: VANCOMYCIN HCL 1000 MG VIAL ONE (06:54)
[2016-06-10] MEDS ORDERED: CARDIOPLEGIC IRR 1,000 ML ONE (07:20)
[2016-06-10] MEDS ORDERED: ALBUMIN HUMAN 25% 12.5 GM/50 ML BAGP IV ONE (07:22)
[2016-06-10] MEDS ORDERED: MANNITOL INJ 50 ML ONE (07:22)
[2016-06-10] MEDS ORDERED: SODIUM BICARBONATE 8.4% INJ 50 MEQ/50 ML SYR ONE (07:22)
[2016-06-10] MEDS ORDERED: POTASSIUM CHLORIDE 40 MEQ/20 ML VIAL ONE ×2 (07:24→13:23)
[2016-06-10] MEDS ORDERED: HEPARIN SODIUM - SQ 10,000 UNITS/ML VIAL IVF ONE (08:00)
[2016-06-10] MEDS ORDERED: PROTAMINE SULFATE 250 MG/25 ML VIAL IV ONE (12:00)
[2016-06-10] MEDS ORDERED: NITROGLYCERIN 50 MG/DEXTROSE 5% SOLN 250 ML BTL IV ONE (12:00)
[2016-06-10] MEDS ORDERED: HEPARIN - 10,000 UNITS/ML IV ADDITIVE IV ONE (12:00)
[2016-06-10] MEDS ORDERED: LACTATED RINGER'S 1000 ML INJ 500 ML IV PRN (13:57)
[2016-06-10] MEDS ORDERED: CALCIUM CHLORIDE 10% 1 GRAM/10 ML VIAL IV PRN (14:00)
[2016-06-10] MEDS ORDERED: Post-op Orders (for Pharmacy) MISC OTHER ONE (14:00)
[2016-06-10] MEDS ORDERED: INSULIN REGULAR (IV INFUSION) 100 UNITS in SODIUM CHLORIDE 0.9% INJ 99 ML IV SCH (14:00)
[2016-06-10] MEDS ORDERED: CALCIUM CHLORIDE INJ 1 GM in SODIUM CHLORIDE 0.9% INJ 100 ML IV PRN (14:00)
[2016-06-10] MEDS ORDERED: POTASSIUM CHLORIDE 20 MEQ CONTROLLED RELEASE TAB PO PRN ×2 (14:00)
[2016-06-10] MEDS ORDERED: METOPROLOL TARTRATE 5 MG/5 ML VIAL IV PUSH PRN (14:00)
[2016-06-10] MEDS ORDERED: ACETAMINOPHEN 650 MG SUPP RECTAL PRN (14:00)
[2016-06-10] MEDS ORDERED: hydrALAZINE HCL 20 MG/ML VIAL IV PRN (14:00)
[2016-06-10] MEDS: ACETAMINOPHEN 1000 MG/100 ML VIAL IV SCH ×2 (14:00→20:00)
[2016-06-10] MEDS ORDERED: ACETAMINOPHEN 325 MG TAB PO PRN (14:00)
[2016-06-10] MEDS ORDERED: POTASSIUM CHLOR 20 MEQ PREMIX 100 ML IV PRN ×3 (14:00)
[2016-06-10] MEDS ORDERED: MAGNESIUM SULFATE INJ 2 GM in SODIUM CHLORIDE 0.9% INJ 100 ML IV PRN (14:00)
[2016-06-10] MEDS ORDERED: ONDANSETRON HCL 4 MG/2 ML VIAL IV PUSH PRN (14:00)
[2016-06-10] MEDS ORDERED: DEXTROSE 50% IN WATER 50 ML VIAL(D50) IV PUSH PRN (14:00)
[2016-06-10] MEDS ORDERED: CLEVIDIPINE INJ 50 ML IV SCH (14:00)
--- NOTE | 2016-06-10 14:19 | PD.OP ---
cc: Kasey Valladares MD; Randal Loving DO; Jerrod Limon MD Operative Report Date of Surgery: Jun 10, 2016 Preoperative Diagnosis: (1) CAD (coronary artery disease) (2) Chest pain Postoperative Diagnosis: same Procedure: REDO CABG x 2 SVG to RCA SVG to OM EVH THIERRY Right femoral arterial line placement Anesthesia: Dr. Mcgovern Surgeon: Kasey Valladares Orchard Sprayer(s): SUPRIYA Perea Operation and Findings: The risks, benefits, complications, treatment options, and expected outcomes were discussed with the patient. The possibilities of reaction to medication, pulmonary aspiration, perforation of viscus, bleeding, recurrent infection, the need for additional procedures, failure to diagnose a condition, and creating a complication requiring transfusion or operation were discussed with the patient. The patient concurred with the proposed plan, giving informed consent. The site of surgery properly noted/marked. The patient was taken to Operating Room, identified as Holger Roth and the procedure verified as REDO CABG, EVH , THIERRY. A Time Out was held and the above information confirmed. Standard monitoring lines and Hills catheter were placed. General anesthesia was induced. The patient was prepped and draped in a sterile fashion. A right femoral arterial line wasplaced using Seldinger technique. The previous median sternotomy was incised and carried down to the anterior sternal table using electrocautery. The wires were cut and left in place as a backstop for the oscillating saw. The sternum was divided and the wires removed. The sternotomy was completed using gentle traction and the saw. The adhesions between the chest wall and mediastinum were divided to allow retractor placement. Adhesions between the epicardium and pericardium were divided. The previous vein grafts were protected. Simultaneously right greater saphenous vein was procured from the right leg using a minimally invasive endoscopic technique. The vein was prepared for anastomosis and the leg wound was irrigated and closed in 2 layers. The patient was heparinized for cardiopulmonary bypass. The heart was instrumented for cardiopulmonary bypass in the usual manner. Antegrade blood cardioplegia was employed. The patient was placed on cardiopulmonary bypass. An aortic cross-clamp was applied and the heart was arrested using cold blood cardioplegia. Antegrade cardioplegia was administered after he each anastomosis. After adequate arrest, the RCA vein graft was opened with a [place] blade and found to be a 2 millimeter good target. Saphenous vein was approximated to the RCA graft using a running 7 0 Prolene suture. The graft was measured for length and orientation and the proximal anastomosis was constructed to the ascending aorta using a running 5 0 Prolene suture after creating an aortotomy with a 5 millimeter punch. The 1st circumflex marginal artery was then opened with a [place] blade and found to be a 1.5 millimeter good target. The patient was systemically rewarmed and received a hotshot dose of warm blood cardioplegia. The aorta was vented and the proximal anastomosis to the OM1 graft was accomplished using a running 5 0 Prolene suture after creating an aortotomy was a 5 millimeter punch. The cross-clamp was removed and all proximal and distal anastomoses were examined for hemostasis. The patient was weaned from cardiopulmonary bypass. Protamine was given. There was no adverse reaction. Decannulation was carried out without incident. Wound was checked for hemostasis which was obtained using electrocautery. A 36 Belgian mediastinal and 32 Belgian right pleural chest tubes were placed and secured to the skin with 0 silk suture. The sternum was closed with stainless steel wire. The fascia was closed with 1. PDS. The subcutaneous tissue was closed using a running 2-0 Vicryl suture. The skin was closed with 4-0 Monocryl. Sterile dressings were placed. At the end of the operation, all sponge, instruments, and needle counts were correct. The patient was transferred to the CVICU in stable condition. Findings: Good distal targets, improved LV function after revascularization XC: 40 min CPB: 69 min Drains: mediastinal x 1 pleural x 1 Complications: none Disposition: to CVICU in stable condition Kasey Valladares MD Jun 10, 2016 14:19
[2016-06-10] MEDS ORDERED: fentaNYL CITRATE 1000 MCG/20 ML VIAL ONE (14:53)
[2016-06-10] MEDS ORDERED: MIDAZOLAM HCL 5 MG/5 ML VIAL ONE (14:53)
[2016-06-10] MEDS ORDERED: RESP: RACEPINEPHRINE 2.25% 0.5 ML NEB NEB PRN (16:15)
[2016-06-10] MEDS ORDERED: RESP: ALBUTEROL 2.5 MG/IPRATROPIUM 0.5 MG NEB (PRN) NEB (16:15)
--- NOTE | 2016-06-10 16:15 | RADRPT ---
EXAM DATE/TIME: 06/10/2016 15:57 [facility] COMPARISON: CHEST SINGLE AP, July 28, 2015, 4:53. INDICATIONS : Post op CABG MEDICAL HISTORY : None. SURGICAL HISTORY : CABG. ENCOUNTER: Initial ACUITY: 1 day PAIN SCORE: Non-responsive. LOCATION: Bilateral chest FINDINGS: Endotracheal tube tip 2 cm above the gladys. Right chest drainage tube in place. Right internal jug ular catheter tip projects in the right atrium. Gastric tube traverses [id number]. There are pat erna infiltrates in the left lower lung and medial right lower lung. Both hemidiaphragms remain well delineated. CONCLUSION: Lines and tubes in good position. Patchy lower lung infiltrates. No evidence pneumothorax. Israel Harvey MD on June 10, 2016 at 16:02 Board Certified Radiologist. This report was verified electronically.
[2016-06-10] MEDS: ATORVASTATIN 20 MG TAB PO SCH (20:15)
[2016-06-10] MEDS: AMIODARONE 200 MG TAB PO SCH (20:15)
[2016-06-10] MEDS: oxyCODONE/ACETAMINOPHEN 5 MG/325 MG TAB PO PRN ×2 (20:15→23:30)
[2016-06-10] MEDS: RESP: ALBUTEROL 2.5 MG/IPRATROPIUM 0.5 MG NEB (SCH) NEB (22:05)
[2016-06-11] VITALS (19 sets, daily range): BP systolic 116–141; BP diastolic 64–98; PULSE 81–120; RESP 18–19; TEMP 97.8–99.3; O2SAT 93–100
[2016-06-11] MEDS: ACETAMINOPHEN 1000 MG/100 ML VIAL IV SCH ×2 (02:00→07:44)
[2016-06-11] MEDS: oxyCODONE/ACETAMINOPHEN 5 MG/325 MG TAB PO PRN ×3 (03:17→21:45)
[2016-06-11] MEDS: RESP: ALBUTEROL 2.5 MG/IPRATROPIUM 0.5 MG NEB (SCH) NEB ×4 (04:03→20:09)
[2016-06-11 04:41] LABS: HEMATOCRIT 35.5 % (39.0-51.0); MEAN CELL VOLUME 94.2 FL (80.0-100.0); MEAN CORPUSCULAR HEMOGLOBIN 32.2 PG (27.0-34.0); MEAN CORPUSCULAR HGB CONC 34.2 % (32.0-36.0); PLATELET COUNT 112 TH/MM3 (150-450); RED BLOOD COUNT 3.77 MIL/MM3 (4.50-5.90); RED CELL DISTRIBUTION WIDTH 14.5 % (11.6-17.2); REVIEW FLAG FINAL; WHITE BLOOD COUNT 21.4 TH/MM3 (4.0-11.0)
[2016-06-11 05:06] LABS: BICARBONATE 24.9 MEQ/L (21.0-32.0); MAGNESIUM 1.8 MG/DL (1.5-2.5); POTASSIUM 4.1 MEQ/L (3.5-5.1)
[2016-06-11] MEDS: PANTOPRAZOLE SOD 40 MG DELAYED RELEASE TAB PO SCH (05:57)
[2016-06-11] MEDS: MAGNESIUM SULFATE INJ 2 GM in SODIUM CHLORIDE 0.9% INJ 100 ML IV PRN (05:58)
--- NOTE | 2016-06-11 06:10 | RADRPT ---
EXAM DATE/TIME: 06/11/2016 04:45 [facility] COMPARISON: CHEST SINGLE AP, June 10, 2016, 15:57. CHEST PA & LAT, May 29, 2016, 13:23. INDICATIONS : Shortness of breath. MEDICAL HISTORY : Hypercholesterolemia. Hypertension Renal calculi. TIA. Coronary artery disease, Skin cancer SURGICAL HISTORY : CABG. Tonsillectomy. Appendectomy. ENCOUNTER: Subsequent ACUITY: 2 days PAIN SCORE: Non-responsive. LOCATION: Bilateral chest FINDINGS: A single view of the chest demonstrates the right chest tube, right IJ central venous catheter are cm th in stable position. There numerous intact sternal wires. Left lower lobe atelectasis. No visible p neumothorax. The cardiomediastinal contours are unremarkable. Osseous structures are intact. CONCLUSION: Stable chest tube in central venous catheter. ET tube has been removed. Minimal atelectasis left lung base. Julius Salcedo MD on June 11, 2016 at 6:08 Board Certified Radiologist. This report was verified electronically.
[2016-06-11] MEDS: ALLOPURINOL 300 MG TAB PO SCH (08:31)
[2016-06-11] MEDS: AMIODARONE 200 MG TAB PO SCH ×2 (08:31→20:35)
[2016-06-11] MEDS: ASPIRIN 81 MG CHEW TAB PO SCH (08:31)
[2016-06-11] MEDS ORDERED: GLUCAGON 1 MG/ML VIAL OTHER PRN (09:00)
[2016-06-11] MEDS ORDERED: INSULIN DETEMIR 100 UNITS/ML VIAL SQ ONE (09:00)
[2016-06-11] MEDS ORDERED: BISACODYL 10 MG SUPP RECTAL PRN (09:00)
[2016-06-11] MEDS ORDERED: POTASSIUM CHLORIDE 20 MEQ CONTROLLED RELEASE TAB PO ONE (09:00)
[2016-06-11] MEDS ORDERED: SOD PHOSPHATE/SOD BIPHOSPHATE (ADULT) ENEMA 133ML RECTAL PRN (09:00)
[2016-06-11] MEDS: MULTIVITAMINS/MINERALS THERAPEUTIC TAB PO SCH (09:00)
[2016-06-11] MEDS ORDERED: DEXTROSE 50% IN WATER 50 ML VIAL(D50) IV PRN (09:00)
[2016-06-11] MEDS ORDERED: FUROSEMIDE 40 MG/4 ML VIAL IV PUSH ONE (09:00)
--- NOTE | 2016-06-11 09:06 | PD.CAR.PN ---
CVT Progress Note CVT: POD #: 1 Subjective/Hospital Course: 75/ male hx of CAD , recurrent chest pain, s/p AVR CABG x 26 July 2015, underwent cardiac cath 05/03/16 revealed patent svg to LAD RCA critical ostial stenosis tissue aortic valve was impinging on the Left main as well as RCA PMH: , CAD, HTN, HLP, on plavix at home surgery: 06/10 REDO CABG x 2, SVG to RCA, SVG to OM, EVH, THIERRY + steroids in OR, 2000cc crystalloid , 1000cc cell saver, EBL 1200cc extubated after surgery 06/11 pt up in chair, pain controlled, sinus tach BP stable wean 02, diuresis, add BB will viky moses cath transfer to stepdown Objective: GENERAL: SKIN: Warm and dry.prevena to chest , jigar wrap to right leg HEAD: Normocephalic. EYES: No scleral icterus. No injection or drainage. NECK: Supple, trachea midline. No JVD or lymphadenopathy. CARDIOVASCULAR: Regular rate and rhythm without murmurs, gallops, or rubs. RESPIRATORY: chest tube to wall suction / drained 250cc/ 12 hrs Breath sounds equal bilaterally. No accessory muscle use. GASTROINTESTINAL: Abdomen soft, non-tender, nondistended. MUSCULOSKELETAL: No cyanosis, or edema. BACK: Nontender without obvious deformity. No CVA tenderness. Vital Signs Date Time Temp Pulse Resp B/P Pulse Ox O2 Delivery O2 Flow Rate FiO2 06/11/16 07:48 98 Nasal Cannula 4.00 06/11/16 07:39 98.7 81 18 123/65 96 123/98 06/11/16 07:32 95 Nasal Cannula 4.00 06/11/16 07:00 92 06/11/16 03:00 85 06/11/16 03:00 99.3 81 18 127/68 96 136/71 06/10/16 23:00 88 06/10/16 23:00 98.2 88 16 126/68 95 116/65 06/10/16 19:15 93 Nasal Cannula 4.00 06/10/16 19:15 98.2 71 16 121/66 93 109/53 06/10/16 19:00 72 06/10/16 16:00 87 06/10/16 15:26 96 Nasal Cannula 4.00 06/10/16 15:25 96 Nasal Cannula 4.00 06/10/16 15:25 96 Nasal Cannula 4 06/10/16 15:00 98.7 73 13 90 116/53 06/10/16 14:45 60 06/10/16 14:30 92 70 06/10/16 14:25 95 Mechanical Ventilator 70 06/10/16 14:25 99.0 70 12 117/66 95 105/52 06/10/16 14:25 70 06/10/16 14:25 70 Labs: Laboratory Tests Test 06/11/16 04:30 White Blood Count 21.4 TH/MM3 (4.0-11.0) Red Blood Count 3.77 MIL/MM3 (4.50-5.90) Hemoglobin 12.1 GM/DL (13.0-17.0) Hematocrit 35.5 % (39.0-51.0) Mean Corpuscular Volume 94.2 FL (80.0-100.0) Mean Corpuscular Hemoglobin 32.2 PG (27.0-34.0) Mean Corpuscular Hemoglobin 34.2 % Concent (32.0-36.0) Red Cell Distribution Width 14.5 % (11.6-17.2) Platelet Count 112 TH/MM3 (150-450) Mean Platelet Volume 9.6 FL (7.0-11.0) Sodium Level 143 MEQ/L (136-145) Potassium Level 4.1 MEQ/L (3.5-5.1) Chloride Level 111 MEQ/L (98-107) Carbon Dioxide Level 24.9 MEQ/L (21.0-32.0) Anion Gap 7 MEQ/L (5-15) Blood Urea Nitrogen 15 MG/DL (7-18) Creatinine 0.92 MG/DL (0.60-1.30) Estimat Glomerular Filtration 80 ML/MIN (>89) Rate Random Glucose 90 MG/DL (74-106) Calcium Level 7.6 MG/DL (8.5-10.1) Magnesium Level 1.8 MG/DL (1.5-2.5) Result Diagram: 06/11/1642906/11/16 0430 Telemetry: NSR (1) CAD (coronary artery disease) (2) S/P CABG x 2 Plan: redo OOB ambulate, leave chest tube in ASA, statin, BB amiodarone resume plavix when chest tube out gentle diuresis pulm toileting CM eval for HHC at discharge (3) Hyperlipidemia (4) HX of AVR Nancy Carroll Jun 11, 2016 09:05
[2016-06-11] MEDS ORDERED: PILL SPLITTER OTHER PRN (10:00)
[2016-06-11] MEDS: INSULIN ASPART SUPPLEMENTAL SCALE SQ SCH ×4 (10:00→21:58)
[2016-06-11] MEDS: METOCLOPRAMIDE HCL 10 MG/2 ML VIAL IV SCH ×4 (10:08→23:50)
[2016-06-11] MEDS: MAGNESIUM HYDROXIDE SUSP 30 ML CUP PO SCH (10:12)
[2016-06-11] MEDS: METOPROLOL TARTRATE 25 MG TAB PO SCH ×3 (10:12→21:45)
--- NOTE | 2016-06-11 13:01 | HHI.FF ---
Face to Face Verification Diagnosis: (1) Aortic stenosis (2) CAD (coronary artery disease) (3) Chest pain (4) HX of AVR (5) S/P CABG x 2 Physical Therapy Order: Evaluate and Treat Home Health Nursing Order: Signs/symptoms of disease process Wound care and dressing changes Nursing assessment with vital signs Instructions: Incentive spirometry Q1 hr x 10, while awake, also use acapella device hourly whole awake Sternal Breast Bone Precautions: NO pushing or pulling, ( pt must use sternal pillow to support chest with all activities and with coughing ( takes up to 3 months breast bone to heal ) Daily incision care: ok to shower daily, no tub bath. Wash all incisions with liquid dial soap, clean wash cloth to each site, rinse and pat dry. Observe for any signs of infection, such as drainage which is dark yellow, tobar, green or foul smelling. Immediately report to the surgeon any drainage from the chest incision, or legs, and for any abnormal drainage from the chest tube sites. Notify surgeon if any temp >101.5 degrees F. When specialty dressing removed/ or if you do not have one, continue to shower daily as above, then rinse and pat incision dry and paint with betadine daily x 5 days. Allow steri strips to fall off if you have any. Avoid lotions, creams, salves, oils, etc. for the first month Please see attached forms for additional instructions regarding post Open Heart specialty wound vacuum dressings. MICHELL or Prevena , Dressing to be removed by Nursing staff on __06/17/[address] Valladares patients , please obtain CBC, BMP, PA & Lat CXR in 2 weeks, results to Dr. Valladares ( prescription will be given) ( ) (Tele: [phone]) , Valve replacement pts will need 2decho in 2 weeks with results to Dr. Valladares . Please obtain 2 d echo at your multiple cut off saw operator office if possible F/U appointment: as per DC instructions: PCP in 2 weeks, CV surgeon 2 weeks, Machine Designer 3-4 weeks For any questions regarding incisions/ dressing / meds / post op care or above Symptoms, Thursday 8am-5pm Heart & Vascular Surgery Office ( Dr. Guan & Dr. Valladares), After Hours / Nights (5pm -8am) Weekends and Holidays Please call [facility] ([facility]) Charge Nurse Heart and Vascular Surgery patients *Special attention to sternal dressing Mandatory frequency Assess and evaluation, 4 days in a row The next week 3X week 2 times a week for 4 weeks 1 time a week for 5 weeks Schedule Heart and Vascular patients for full 60 day certification period Initial visit Review Open Heart Surgery Discharge Instructions (Sternal precautions, Activity, Elastic hose, Incision care, Driving, Incentive spirometry, Smoking, [place], Work and other) Need Betadine to paint incision Medication reconciliation Importance of follow up care/ check on appointments Make calendar record temperature daily When to call [facility] at Home nurse, review instructions, phone list Incentive Spirometry, demonstration Visit 1- Begin discharge instruction for patient family and/ or caregiver using teach back method- Signs and symptoms of infection Disease characteristics Medicines and side effects Foods and nutrition/ appetite Infection control/ hand washing/ hygiene Visit 2- Continue teaching Discharge instructions- include additional information on smoking cessation , sternal dressing (sternal vac) Visit 3- Continue teaching- Cough and deep breathing, incision monitoring. Choose my plate Visit 4- Continue teaching- Discuss limitations Discuss how they are feeling Discuss progress toward goals Remaining visits- continue teaching and monitoring I have seen patient Holger Roth on 06/11/16. My clinical findings support the need for the requested home health care services because: Deconditioned w/ increased weakness I certify that my clinical findings support that this patient is homebound because: Post-op weakness Nancy Carroll Jun 11, 2016 13:01
[2016-06-11] MEDS: SODIUM CHLORIDE 0.9% FLUSH 10 ML FLUSH IV FLUSH PRN (18:48)
[2016-06-11] MEDS: ATORVASTATIN 20 MG TAB PO SCH (20:36)
[2016-06-11] MEDS: SENNOSIDES 8.6 MG TAB PO SCH (20:36)
[2016-06-11] MEDS: DOCUSATE SODIUM 100 MG CAP PO SCH (20:36)
--- NOTE | 2016-06-11 22:23 | EKG ---
Date Performed: 06/11/2016 Time Performed: 04:58:38 PTAGE: 75 years EKG: Sinus rhythm with PVC(s) Left axis deviation LVH with secondary repolarization abnormality Anterolateral ST-T gloria nges may be due to hypertrophy and/or ischemia Abnormal ECG PREVIOUS TRACING : 05/28/2016 07.47 Compared to prior tracing no significant change DOCTOR: Randal Loving Interpretating Date/Time 06/11/2016 22:23:17
[2016-06-12] VITALS (29 sets, daily range): BP systolic 102–139; BP diastolic 62–78; PULSE 85–124; RESP 16–19; TEMP 97.2–99; O2SAT 90–98
[2016-06-12] MEDS: INSULIN ASPART SUPPLEMENTAL SCALE SQ SCH ×5 (01:49→20:52)
[2016-06-12] MEDS: oxyCODONE/ACETAMINOPHEN 5 MG/325 MG TAB PO PRN ×2 (02:34→23:57)
[2016-06-12 03:54] LABS: AUTOMATED NEUTROPHIL # 18.3 TH/MM3 (1.8-7.7); BASOPHIL % 0.1 % (0.0-2.0); HEMATOCRIT 33.3 % (39.0-51.0); HEMO FLAGS DIFF FINAL; LYMPH % 6.3 % (9.0-44.0); LYMPHOCYTE # 1.3 TH/MM3 (1.0-4.8); MEAN CORPUSCULAR HEMOGLOBIN 32.7 PG (27.0-34.0); MEAN CORPUSCULAR HGB CONC 34.4 % (32.0-36.0); NEUT % 86.6 % (16.0-70.0); PLATELET COUNT 110 TH/MM3 (150-450); RED BLOOD COUNT 3.51 MIL/MM3 (4.50-5.90); RED CELL DISTRIBUTION WIDTH 14.8 % (11.6-17.2); WHITE BLOOD COUNT 21.2 TH/MM3 (4.0-11.0)
[2016-06-12 04:10] LABS: BICARBONATE 29.2 MEQ/L (21.0-32.0); MAGNESIUM 1.9 MG/DL (1.5-2.5); POTASSIUM 4.1 MEQ/L (3.5-5.1)
[2016-06-12] MEDS: PANTOPRAZOLE SOD 40 MG DELAYED RELEASE TAB PO SCH (05:38)
[2016-06-12] MEDS: MAGNESIUM SULFATE INJ 2 GM in SODIUM CHLORIDE 0.9% INJ 100 ML IV PRN (05:39)
[2016-06-12] MEDS: RESP: ALBUTEROL 2.5 MG/IPRATROPIUM 0.5 MG NEB (SCH) NEB ×3 (07:14→19:56)
[2016-06-12] MEDS: FUROSEMIDE 40 MG/4 ML VIAL IV PUSH SCH ×2 (08:43→17:09)
[2016-06-12] MEDS: POLYETHYLENE GLYCOL 17 GM PKG PO SCH (08:44)
[2016-06-12] MEDS: AMIODARONE 200 MG TAB PO SCH ×2 (08:44→20:51)
[2016-06-12] MEDS: SODIUM CHLORIDE 0.9% FLUSH 10 ML FLUSH IV FLUSH PRN (08:44)
[2016-06-12] MEDS: MAGNESIUM HYDROXIDE SUSP 30 ML CUP PO SCH (08:44)
[2016-06-12] MEDS: MAGNESIUM SULFATE 1 GM PREMIX 100 ML IV SCH ×2 (08:44→10:05)
[2016-06-12] MEDS: ASPIRIN 81 MG CHEW TAB PO SCH (08:45)
[2016-06-12] MEDS: METOPROLOL TARTRATE 25 MG TAB PO SCH ×2 (08:45→20:52)
[2016-06-12] MEDS: MULTIVITAMINS/MINERALS THERAPEUTIC TAB PO SCH (08:45)
[2016-06-12] MEDS: ALLOPURINOL 300 MG TAB PO SCH (08:45)
[2016-06-12] MEDS: DOCUSATE SODIUM 100 MG CAP PO SCH ×2 (08:45→20:51)
[2016-06-12] MEDS ORDERED: POTASSIUM CHLORIDE 10 MEQ CONTROLLED RELEASE TAB PO SCH (09:00)
[2016-06-12] MEDS ORDERED: BISACODYL 10 MG SUPP RECTAL ONE ×2 (11:30→14:00)
[2016-06-12] MEDS: TAMSULOSIN HCL 0.4 MG CAP PO SCH (11:44)
[2016-06-12 11:57] LABS: BLOOD, URINE SMALL (NEG); COMMENT (UR) CULT NOT INDICATED; CULTURE IF INDICATED CULT NOT INDICATED; GLUCOSE,URINE NEG (NEG); HYALINE CAST, URINE 1 /lpf (RARE); KETONE, URINE NEG (NEG); NITRITE,URINE NEG (NEG); URINE COLOR LIGHT-YELLOW (YELLW/STRAW)
--- NOTE | 2016-06-12 14:19 | PD.CAR.PN ---
CVT Progress Note Subjective/Hospital Course: 75/ male hx of CAD , recurrent chest pain, s/p AVR CABG x 26 July 2015, underwent cardiac cath 05/03/16 revealed patent svg to LAD RCA critical ostial stenosis tissue aortic valve was impinging on the Left main as well as RCA PMH: , CAD, HTN, HLP, on plavix at home surgery: 06/10 REDO CABG x 2, SVG to RCA, SVG to OM, EVH, THIERRY + steroids in OR, 2000cc crystalloid , 1000cc cell saver, EBL 1200cc extubated after surgery 06/11 pt up in chair, pain controlled, sinus tach BP stable wean 02, diuresis, add BB will dc richard, salmon cath transfer to stepdown 06/12 pt had some urinary retention required straight cath/ UA neg/ started on flomax bladder scanned later / 700 residual urine salmon cath replaced/ will consult Urology +6kg from surgery , continue diuresis additional GI meds ordered Objective: GENERAL: SKIN: Warm and dry.prevena to chest / incision in tact to leg HEAD: Normocephalic. EYES: No scleral icterus. No injection or drainage. NECK: Supple, trachea midline. No JVD or lymphadenopathy. CARDIOVASCULAR: Regular rate and rhythm without murmurs, gallops, or rubs. RESPIRATORY: chest tube removed Breath sounds equal bilaterally. No accessory muscle use. GASTROINTESTINAL: Abdomen soft, non-tender, nondistended., mild distention / + bowel sounds : urinary retention / salmon cath replaced MUSCULOSKELETAL: No cyanosis, or edema. BACK: Nontender without obvious deformity. No CVA tenderness. Vital Signs Date Time Temp Pulse Resp B/P Pulse Ox O2 Delivery O2 Flow Rate FiO2 06/12/16 13:20 106 06/12/16 12:47 105 06/12/16 12:00 94 06/12/16 11:30 98.8 91 19 126/78 92 06/12/16 11:00 89 06/12/16 10:28 99 06/12/16 09:40 105 06/12/16 08:14 95 06/12/16 07:14 92 21 06/12/16 07:10 91 Room Air 06/12/16 07:00 100 06/12/16 07:00 95 18 124/76 90 06/12/16 06:00 85 06/12/16 05:00 86 06/12/16 04:00 93 06/12/16 03:00 92 06/12/16 03:00 99.0 92 18 139/77 98 06/12/16 02:00 100 06/12/16 01:00 105 06/12/16 00:00 110 06/12/16 00:00 98.8 110 18 138/78 91 06/12/16 00:00 95 Nasal Cannula 2.00 06/11/16 23:00 110 06/11/16 22:00 110 06/11/16 21:00 118 06/11/16 20:24 100 06/11/16 20:00 110 06/11/16 20:00 93 Room Air 06/11/16 20:00 99.3 110 18 141/81 93 Arterial Line 06/11/16 19:00 120 06/11/16 18:06 99 06/11/16 16:23 97 06/11/16 15:00 102 06/11/16 15:00 98.8 103 19 127/76 95 06/11/16 14:00 94 Labs: Laboratory Tests Test 06/12/16 06/12/16 03:20 11:00 White Blood Count 21.2 TH/MM3 (4.0-11.0) Red Blood Count 3.51 MIL/MM3 (4.50-5.90) Hemoglobin 11.5 GM/DL (13.0-17.0) Hematocrit 33.3 % (39.0-51.0) Mean Corpuscular Volume 95.0 FL (80.0-100.0) Mean Corpuscular Hemoglobin 32.7 PG (27.0-34.0) Mean Corpuscular Hemoglobin 34.4 % Concent (32.0-36.0) Red Cell Distribution Width 14.8 % (11.6-17.2) Platelet Count 110 TH/MM3 (150-450) Mean Platelet Volume 10.3 FL (7.0-11.0) Neutrophils (%) (Auto) 86.6 % (16.0-70.0) Lymphocytes (%) (Auto) 6.3 % (9.0-44.0) Monocytes (%) (Auto) 7.0 % (0.0-8.0) Eosinophils (%) (Auto) 0.0 % (0.0-4.0) Basophils (%) (Auto) 0.1 % (0.0-2.0) Neutrophils # (Auto) 18.3 TH/MM3 (1.8-7.7) Lymphocytes # (Auto) 1.3 TH/MM3 (1.0-4.8) Monocytes # (Auto) 1.5 TH/MM3 (0-0.9) Eosinophils # (Auto) 0.0 TH/MM3 (0-0.4) Basophils # (Auto) 0.0 TH/MM3 (0-0.2) CBC Comment DIFF FINAL Differential Comment Sodium Level 141 MEQ/L (136-145) Potassium Level 4.1 MEQ/L (3.5-5.1) Chloride Level 107 MEQ/L (98-107) Carbon Dioxide Level 29.2 MEQ/L (21.0-32.0) Anion Gap 5 MEQ/L (5-15) Blood Urea Nitrogen 15 MG/DL (7-18) Creatinine 0.89 MG/DL (0.60-1.30) Estimat Glomerular Filtration 83 ML/MIN (>89) Rate Random Glucose 122 MG/DL (74-106) Calcium Level 8.2 MG/DL (8.5-10.1) Magnesium Level 1.9 MG/DL (1.5-2.5) Urine Color LIGHT-YELLOW (YELLW/STRAW) Urine Turbidity CLEAR (CLEAR) Urine pH 5.0 (5.0-8.5) Urine Specific [place] 1.006 (1.002-1.035) Urine Protein NEG mg/dL (NEG-TRACE) Urine Glucose (UA) NEG mg/dL (NEG) Urine Ketones NEG mg/dL (NEG) Urine Occult Blood SMALL (NEG) Urine Nitrite NEG (NEG) Urine Bilirubin NEG (NEG) Urine Urobilinogen LESS THAN 2.0 MG/DL (LESS THAN 2.0) Urine Leukocyte Esterase NEG (NEG) Urine RBC 12 /hpf (0-3) Urine WBC 1 /hpf (0-5) Urine Hyaline Casts 1 /lpf (RARE) Microscopic Urinalysis Comment CULT NOT INDICATED Result Diagram: 06/12/1631906/12/16319 Telemetry: NSR (1) CAD (coronary artery disease) (2) S/P CABG x 2 Plan: redo OOB ambulate, chest tube removed without difficulty / f/u CXR in am still has some leukocytosis , low grade temp continue aggressive pulm toileting ASA, statin, BB amiodarone resume plavix gentle diuresis CM eval for HHC at discharge (3) Hyperlipidemia Plan: on statin (4) HX of AVR (5) Urinary retention Plan: salmon replaced after pt was straight cath earlier UA neg/ start on flomax/ Urology consult pending Nnacy Carroll Jun 12, 2016 14:19
--- NOTE | 2016-06-12 16:16 | RADRPT ---
EXAM DATE/TIME: 06/12/2016 15:06 [place] COMPARISON: CHEST SINGLE AP, June 11, 2016, 4:45. INDICATIONS : Post chest tube removal. MEDICAL HISTORY : None. SURGICAL HISTORY : CABG. ENCOUNTER: Subsequent ACUITY: 3 days PAIN SCORE: 0/10 LOCATION: Bilateral chest FINDINGS: Right-sided chest tube has been removed. There is no evidence of pneumothorax. Streaky air space disease compatible with atelectasis is evident in the left base. Right jugular central line remains in position. Heart and mediastinal structures are stable. CONCLUSION: No evidence of pneumothorax following right-sided chest tube removal. Left basilar airspace disease characteristic of atelectasis. Otherwise stable chest. Stefan Garcia MD on June 12, 2016 at 16:13 Board Certified Radiologist. This report was verified electronically.
[2016-06-12] MEDS: ATORVASTATIN 20 MG TAB PO SCH (20:52)
[2016-06-12] MEDS: SENNOSIDES 8.6 MG TAB PO SCH (20:52)
[2016-06-13] VITALS (29 sets, daily range): BP systolic 99–132; BP diastolic 55–68; PULSE 86–128; RESP 16–18; TEMP 98–98.5; O2SAT 91–97
[2016-06-13] MEDS: PANTOPRAZOLE SOD 40 MG DELAYED RELEASE TAB PO SCH (05:41)
[2016-06-13] MEDS: INSULIN ASPART SUPPLEMENTAL SCALE SQ SCH ×4 (05:41→21:00)
[2016-06-13 06:54] LABS: AUTOMATED NEUTROPHIL # 10.3 TH/MM3 (1.8-7.7); BASOPHIL % 0.2 % (0.0-2.0); EOSINOPHIL % 0.1 % (0.0-4.0); HEMATOCRIT 30.1 % (39.0-51.0); LYMPH % 10.9 % (9.0-44.0); LYMPHOCYTE # 1.4 TH/MM3 (1.0-4.8); MEAN CELL VOLUME 95.8 FL (80.0-100.0); MEAN CORPUSCULAR HGB CONC 33.4 % (32.0-36.0); MONO % 7.5 % (0.0-8.0); NEUT % 81.3 % (16.0-70.0); PLATELET COUNT 90 TH/MM3 (150-450); RED BLOOD COUNT 3.14 MIL/MM3 (4.50-5.90); RED CELL DISTRIBUTION WIDTH 14.7 % (11.6-17.2); WHITE BLOOD COUNT 12.7 TH/MM3 (4.0-11.0)
[2016-06-13 06:56] LABS: HEMO FLAGS AUTO DIFF
[2016-06-13 07:07] LABS: MAGNESIUM 2.2 MG/DL (1.5-2.5); POTASSIUM 3.6 MEQ/L (3.5-5.1)
[2016-06-13 08:03] LABS: PLATELET ESTIMATE SMEAR LOW (NORMAL); PLATELET MORPHOLOGY NORMAL (NORMAL); SCAN/DIFF AUTO DIFF CONFIRMED
[2016-06-13] MEDS: MAGNESIUM HYDROXIDE SUSP 30 ML CUP PO SCH (08:30)
[2016-06-13] MEDS: DOCUSATE SODIUM 100 MG CAP PO SCH ×2 (08:30→21:50)
[2016-06-13] MEDS: ALLOPURINOL 300 MG TAB PO SCH (08:30)
[2016-06-13] MEDS: METOPROLOL TARTRATE 25 MG TAB PO SCH ×2 (08:30→21:50)
[2016-06-13] MEDS: MULTIVITAMINS/MINERALS THERAPEUTIC TAB PO SCH (08:30)
[2016-06-13] MEDS: ASPIRIN 81 MG CHEW TAB PO SCH (08:31)
[2016-06-13] MEDS: TAMSULOSIN HCL 0.4 MG CAP PO SCH (08:31)
[2016-06-13] MEDS: CLOPIDOGREL 75 MG TAB PO SCH (08:31)
[2016-06-13] MEDS: AMIODARONE 200 MG TAB PO SCH ×2 (08:31→21:50)
[2016-06-13] MEDS: POLYETHYLENE GLYCOL 17 GM PKG PO SCH (08:31)
[2016-06-13] MEDS: RESP: ALBUTEROL 2.5 MG/IPRATROPIUM 0.5 MG NEB (SCH) NEB ×2 (08:53→12:57)
[2016-06-13] MEDS ORDERED: FUROSEMIDE 40 MG/4 ML VIAL IV PUSH SCH (09:00)
[2016-06-13] MEDS ORDERED: POTASSIUM CHLORIDE 10 MEQ CONTROLLED RELEASE TAB PO SCH (09:00)
[2016-06-13] MEDS ORDERED: POTASSIUM CHLORIDE 10 MEQ CONTROLLED RELEASE TAB PO ONE (10:00)
--- NOTE | 2016-06-13 10:57 | PD.CONS ---
[facility] Service Urology Consult Requested By Reason for Consult Postoperative urinary retention Primary Care Physician Gaye Morrison MD Diagnosis: History of Present Illness 75-year-old gentleman with no prior history urologic disease who is status post coronary artery bypass grafting revision on June 10 of this year. Postoperatively the patient developed difficulty urinating requiring straight catheterization. The last catheterization yielded 700 cc of urine and a Hills catheter was left indwelling. Patient was started on Flomax and a urology consult was placed. Upon further questioning the patient reports that he has not had any problems urinating prior to his present hospitalization. He denies a history of prostate disorders or the need for any prostate medication. He denies a history of dysuria or gross hematuria. Review of Systems Constitutional: DENIES: Fever, Chills Genitourinary: DENIES: Urinary incontinence, Hematuria Musculoskeletal: DENIES: Back pain Except as stated in HPI: all other systems reviewed are Neg Past Family Social History Past Medical History Coronary artery disease Aortic stenosis Hypertension Hyperlipidemia Past Surgical History CABG revision (present hospitalization) Aortic valve replacement with CABG Appendectomy Knee and foot surgery Carpal tunnel surgery Reported Medications Refer to EMR Allergies: Coded Allergies: MRI PRECAUTION (Unverified Allergy, Severe, metal behind left eye, 06/10/16 ) Novocain (Verified Allergy, Severe, throat swells, 06/10/16) swelling of the throat Active Ordered Medications Refer to EMR Family History Reviewed and noncontributory Social History Former smoker 1 pack per day who quit in 1973 Occasional alcohol use No history intravenous drug abuse Physical Exam Vital Signs Date Time Temp Pulse Resp B/P Pulse Ox O2 Delivery O2 Flow Rate FiO2 06/13/16 08:56 96 21 06/13/16 08:00 98.3 91 16 132/68 93 06/13/16 08:00 88 06/13/16 07:49 Nasal Cannula 2.00 06/13/16 06:00 92 06/13/16 05:00 92 06/13/16 04:00 88 06/13/16 03:45 98.0 89 16 106/63 97 06/13/16 03:00 91 06/13/16 02:00 95 06/13/16 01:00 92 06/13/16 00:00 96 06/12/16 23:45 98.0 97 18 102/62 97 06/12/16 23:00 108 06/12/16 22:00 102 06/12/16 21:00 115 06/12/16 20:18 94 06/12/16 20:00 110 06/12/16 19:47 89 Room Air 06/12/16 19:30 98.8 106 18 116/66 95 06/12/16 19:00 106 06/12/16 18:00 118 06/12/16 17:00 124 06/12/16 16:00 104 06/12/16 16:00 97.2 106 16 111/64 92 06/12/16 14:13 105 06/12/16 13:20 106 06/12/16 12:47 105 06/12/16 12:00 94 06/12/16 11:30 98.8 91 19 126/78 92 06/12/16 11:00 89 Physical Exam GENERAL: This is a well-nourished, well-developed patient, in no apparent distress. SKIN: No rashes, ecchymoses or lesions. Cool and dry. HEAD: Atraumatic. Normocephalic. No temporal or scalp tenderness. EYES: Pupils equal round and reactive. Extraocular motions intact. No scleral icterus. No injection or drainage. ENT: Nose without bleeding, purulent drainage or septal hematoma. Throat without erythema, tonsillar hypertrophy or exudate. Uvula midline. Airway patent. NECK: Trachea midline. No JVD or lymphadenopathy. Supple, nontender, no meningeal signs. GASTROINTESTINAL: Abdomen soft, non-tender, nondistended. No hepato-splenomegaly , or palpable masses. No guarding. GENITOURINARY: Prostate approximately 30-35 g and smooth without any palpable nodules MUSCULOSKELETAL: Extremities without clubbing, cyanosis, or edema. No joint tenderness, effusion, or edema noted. No calf tenderness. Negative Homans sign bilaterally. NEUROLOGICAL: Awake and alert. Cranial nerves II through XII intact. Motor and sensory grossly within normal limits. Five out of 5 muscle strength in all muscle groups. Normal speech. Laboratory Tests Test 06/12/16 06/13/16 11:00 03:50 Urine Color LIGHT-YELLOW Urine Turbidity CLEAR Urine pH 5.0 Urine Specific [place] 1.006 Urine Protein NEG Urine Glucose (UA) NEG Urine Ketones NEG Urine Occult Blood SMALL Urine Nitrite NEG Urine Bilirubin NEG Urine Urobilinogen LESS THAN 2.0 Urine Leukocyte Esterase NEG Urine RBC 12 Urine WBC 1 Urine Hyaline Casts 1 Microscopic Urinalysis Comment CULT NOT INDICATED White Blood Count 12.7 Red Blood Count 3.14 Hemoglobin 10.1 Hematocrit 30.1 Mean Corpuscular Volume 95.8 Mean Corpuscular Hemoglobin 32.0 Mean Corpuscular Hemoglobin 33.4 Concent Red Cell Distribution Width 14.7 Platelet Count 90 Mean Platelet Volume 10.0 Neutrophils (%) (Auto) 81.3 Lymphocytes (%) (Auto) 10.9 Monocytes (%) (Auto) 7.5 Eosinophils (%) (Auto) 0.1 Basophils (%) (Auto) 0.2 Neutrophils # (Auto) 10.3 Lymphocytes # (Auto) 1.4 Monocytes # (Auto) 0.9 Eosinophils # (Auto) 0.0 Basophils # (Auto) 0.0 CBC Comment AUTO DIFF Differential Comment AUTO DIFF CONFIRMED Platelet Estimate LOW Platelet Morphology Comment NORMAL Sodium Level 141 Potassium Level 3.6 Chloride Level 104 Carbon Dioxide Level 31.0 Anion Gap 6 Blood Urea Nitrogen 14 Creatinine 0.90 Estimat Glomerular Filtration 82 Rate Random Glucose 114 Calcium Level 8.2 Magnesium Level 2.2 Result Diagram: 06/13/16 0350 06/13/16 0350 Imaging Last Impressions Chest X-Ray 06/12/16 0000 Signed Impressions: Service Date/Time: May 15:06 - CONCLUSION: No evidence of pneumothorax following right-sided chest tube removal. Left basilar airspace disease characteristic of atelectasis. Otherwise stable chest. Stefan Garcia MD Assessment and Plan Code Status Urologic impression: #1 BPH #2 urinary retention of probable transient nature related to recent surgery Recommendations: #1 continue with Flomax 0.4 mg daily #2 would leave Hills catheter indwelling for the next 3 days and subsequently removed for repeat voiding trial #3 if patient discharged home over the weekend he should contact my office on Thursday morning to arrange a visit time to have one of my office nurses remove the Hills catheter [phone]. Yuval Andujar MD Jun 13, 2016 10:57
--- NOTE | 2016-06-13 10:59 | PD.CAR.PN ---
CVT Progress Note CVT: POD #: 3 Subjective/Hospital Course: 75/ male hx of CAD , recurrent chest pain, s/p AVR CABG x 26 July 2015, underwent cardiac cath 05/03/16 revealed patent svg to LAD RCA critical ostial stenosis tissue aortic valve was impinging on the Left main as well as RCA PMH: , CAD, HTN, HLP, on plavix at home surgery: 06/10 REDO CABG x 2, SVG to RCA, SVG to OM, EVH, THIERRY + steroids in OR, 2000cc crystalloid , 1000cc cell saver, EBL 1200cc extubated after surgery 06/11 pt up in chair, pain controlled, sinus tach BP stable wean 02, diuresis, add BB will dc richard, salmon cath transfer to stepdown 06/12 pt had some urinary retention required straight cath/ UA neg/ started on flomax bladder scanned later / 700 residual urine salmon cath replaced/ will consult Urology +6kg from surgery , continue diuresis additional GI meds ordered 06/12 salmon cath remains in place/ Urology consult pending remains on flomax + BM eval for dc to rehab tomorrow , after urology eval will dc lasix K+ replaced Objective: GENERAL: SKIN: Warm and dry.prevena to chest HEAD: Normocephalic. EYES: No scleral icterus. No injection or drainage. NECK: Supple, trachea midline. No JVD or lymphadenopathy. CARDIOVASCULAR: Regular rate and rhythm without murmurs, gallops, or rubs. RESPIRATORY: Breath sounds equal bilaterally. No accessory muscle use. GASTROINTESTINAL: Abdomen soft, non-tender, nondistended. MUSCULOSKELETAL: No cyanosis, or edema. : salmon cath in place BACK: Nontender without obvious deformity. No CVA tenderness. Vital Signs Date Time Temp Pulse Resp B/P Pulse Ox O2 Delivery O2 Flow Rate FiO2 06/13/16 08:56 96 21 06/13/16 08:00 98.3 91 16 132/68 93 06/13/16 08:00 88 06/13/16 07:49 Nasal Cannula 2.00 06/13/16 06:00 92 06/13/16 05:00 92 06/13/16 04:00 88 06/13/16 03:45 98.0 89 16 106/63 97 06/13/16 03:00 91 06/13/16 02:00 95 06/13/16 01:00 92 06/13/16 00:00 96 06/12/16 23:45 98.0 97 18 102/62 97 06/12/16 23:00 108 06/12/16 22:00 102 06/12/16 21:00 115 06/12/16 20:18 94 06/12/16 20:00 110 06/12/16 19:47 89 Room Air 06/12/16 19:30 98.8 106 18 116/66 95 06/12/16 19:00 106 06/12/16 18:00 118 06/12/16 17:00 124 06/12/16 16:00 104 06/12/16 16:00 97.2 106 16 111/64 92 06/12/16 14:13 105 06/12/16 13:20 106 06/12/16 12:47 105 06/12/16 12:00 94 06/12/16 11:30 98.8 91 19 126/78 92 06/12/16 11:00 89 Labs: Laboratory Tests Test 06/13/16 03:50 White Blood Count 12.7 TH/MM3 (4.0-11.0) Red Blood Count 3.14 MIL/MM3 (4.50-5.90) Hemoglobin 10.1 GM/DL (13.0-17.0) Hematocrit 30.1 % (39.0-51.0) Mean Corpuscular Volume 95.8 FL (80.0-100.0) Mean Corpuscular Hemoglobin 32.0 PG (27.0-34.0) Mean Corpuscular Hemoglobin 33.4 % Concent (32.0-36.0) Red Cell Distribution Width 14.7 % (11.6-17.2) Platelet Count 90 TH/MM3 (150-450) Mean Platelet Volume 10.0 FL (7.0-11.0) Neutrophils (%) (Auto) 81.3 % (16.0-70.0) Lymphocytes (%) (Auto) 10.9 % (9.0-44.0) Monocytes (%) (Auto) 7.5 % (0.0-8.0) Eosinophils (%) (Auto) 0.1 % (0.0-4.0) Basophils (%) (Auto) 0.2 % (0.0-2.0) Neutrophils # (Auto) 10.3 TH/MM3 (1.8-7.7) Lymphocytes # (Auto) 1.4 TH/MM3 (1.0-4.8) Monocytes # (Auto) 0.9 TH/MM3 (0-0.9) Eosinophils # (Auto) 0.0 TH/MM3 (0-0.4) Basophils # (Auto) 0.0 TH/MM3 (0-0.2) CBC Comment AUTO DIFF Differential Comment AUTO DIFF CONFIRMED Platelet Estimate LOW (NORMAL) Platelet Morphology Comment NORMAL (NORMAL) Sodium Level 141 MEQ/L (136-145) Potassium Level 3.6 MEQ/L (3.5-5.1) Chloride Level 104 MEQ/L (98-107) Carbon Dioxide Level 31.0 MEQ/L (21.0-32.0) Anion Gap 6 MEQ/L (5-15) Blood Urea Nitrogen 14 MG/DL (7-18) Creatinine 0.90 MG/DL (0.60-1.30) Estimat Glomerular Filtration 82 ML/MIN (>89) Rate Random Glucose 114 MG/DL (74-106) Calcium Level 8.2 MG/DL (8.5-10.1) Magnesium Level 2.2 MG/DL (1.5-2.5) Result Diagram: 06/13/1634906/13/16349 (1) CAD (coronary artery disease) (2) S/P CABG x 2 Plan: redo OOB ambulate, continue aggressive pulm toileting ASA, statin, BB amiodarone plavix CM eval for SNF / pt lives alone (3) Hyperlipidemia Plan: on statin (4) HX of AVR (5) Urinary retention Plan: salmon replaced after pt was straight cath earlier UA neg/ on flomax/ Urology consult pending Nancy Carroll Jun 13, 2016 10:59
[2016-06-13] MEDS ORDERED: TAMS5CAP PO (11:08)
[2016-06-13] MEDS ORDERED: THERM PO (11:08)
[2016-06-13] MEDS ORDERED: AMIO200T PO (11:08)
[2016-06-13] MEDS ORDERED: DOCU1CAP39 PO (11:08)
--- NOTE | 2016-06-13 13:36 | HHI.DS ---
Discharge Summary Admission Date Jun 10, 2016 at 05:59 Discharge Date: Jun 13, 2016 Admitting Diagnosis chest pain (1) HX of AVR Diagnosis: Principal (2) Hyperlipidemia Diagnosis: Principal (3) Chest pain Diagnosis: Principal (4) Recurrent chest pain Diagnosis: Principal (5) S/P CABG x 2 Diagnosis: Secondary Procedures REDO CABG x 2 06/10 SVG to RCA SVG to OM EVH THIERRY Brief History 75/ male hx of CAD , recurrent chest pain, s/p AVR CABG x 26 July 2015, underwent cardiac cath 05/03/16 revealed patent svg to LAD RCA critical ostial stenosis tissue aortic valve was impinging on the Left main as well as RCA PMH: , CAD, HTN, HLP, on plavix at home surgery: 06/10 REDO CABG x 2, SVG to RCA, SVG to OM, EVH, THIERRY CBC/BMP: 06/13/16 0350 06/13/16 0350 Significant Findings Laboratory Tests Test 06/11/16 06/12/16 06/12/16 06/13/16 04:30 03:20 11:00 03:50 White Blood Count 21.4 TH/MM3 21.2 TH/MM3 12.7 TH/MM3 (4.0-11.0) (4.0-11.0) (4.0-11.0) Red Blood Count 3.77 MIL/MM3 3.51 MIL/MM3 3.14 MIL/MM3 (4.50-5.90) (4.50-5.90) (4.50-5.90) Hemoglobin 12.1 GM/DL 11.5 GM/DL 10.1 GM/DL (13.0-17.0) (13.0-17.0) (13.0-17.0) Hematocrit 35.5 % 33.3 % 30.1 % (39.0-51.0) (39.0-51.0) (39.0-51.0) Platelet Count 112 TH/MM3 110 TH/MM3 90 TH/MM3 (150-450) (150-450) (150-450) Chloride Level 111 MEQ/L (98-107) Estimat Glomerular Filtration 80 ML/MIN (>89) 83 ML/MIN (>89) 82 ML/MIN (>89) Rate Calcium Level 7.6 MG/DL 8.2 MG/DL 8.2 MG/DL (8.5-10.1) (8.5-10.1) (8.5-10.1) Neutrophils (%) (Auto) 86.6 % 81.3 % (16.0-70.0) (16.0-70.0) Lymphocytes (%) (Auto) 6.3 % (9.0-44.0) Neutrophils # (Auto) 18.3 TH/MM3 10.3 TH/MM3 (1.8-7.7) (1.8-7.7) Monocytes # (Auto) 1.5 TH/MM3 (0-0.9) Random Glucose 122 MG/DL 114 MG/DL (74-106) (74-106) Urine Occult Blood SMALL (NEG) Urine RBC 12 /hpf (0-3) Platelet Estimate LOW (NORMAL) Imaging Last Impressions Chest X-Ray 06/12/16 0000 Signed Impressions: Service Date/Time: May 15:06 - CONCLUSION: No evidence of pneumothorax following right-sided chest tube removal. Left basilar airspace disease characteristic of atelectasis. Otherwise stable chest. Stefan Garcia MD PE at Discharge GENERAL: SKIN: Warm and dry.prevena to chest , incision intact to leg HEAD: Normocephalic. EYES: No scleral icterus. No injection or drainage. NECK: Supple, trachea midline. No JVD or lymphadenopathy. CARDIOVASCULAR: Regular rate and rhythm without murmurs, gallops, or rubs. RESPIRATORY: Breath sounds equal bilaterally. No accessory muscle use. GASTROINTESTINAL: Abdomen soft, non-tender, nondistended. : salmon cath in place MUSCULOSKELETAL: No cyanosis, or edema. BACK: Nontender without obvious deformity. No CVA tenderness. Hospital Course surgery: 06/10 REDO CABG x 2, SVG to RCA, SVG to OM, EVH, THIERRY + steroids in OR, 2000cc crystalloid , 1000cc cell saver, EBL 1200cc extubated after surgery 06/11 pt up in chair, pain controlled, sinus tach BP stable wean 02, diuresis, add BB will dc richard, salmon cath transfer to stepdown 06/12 pt had some urinary retention required straight cath/ UA neg/ started on flomax bladder scanned later / 700 residual urine salmon cath replaced/ will consult Urology +6kg from surgery , continue diuresis additional GI meds ordered 06/12 salmon cath remains in place/ Urology consult pending remains on flomax + BM eval for dc to rehab tomorrow , after urology eval will dc lasix K+ replaced 06/13 pt seen and eval by Dr Velásquez ( Urology) ok to dc with salmon cath in place/ will provide leg bag, pt to f/u in his office on Thursday will dc diuretic, HR stable ok to dc today to SNF Pt Condition on Discharge: Good Discharge Disposition: Discharge to SNF Discharge Instructions DIET: Follow Instructions for: Heart Healthy Diet Activities you can perform: Full Weight Bearing, Shower Only-No Bath Activities to avoid: Strenuous Activity, Driving Additional Activity Instructio: no lifting > 8lbs or gallon of milk Follow up Referrals: Cardiology @ [facility] with Jerrod Limon MD PCP Follow-up with Gaye Morrison MD SNF/CUSTODIAL/ with [facility] with Kasey Valladares MD New Orders: BASIC METABOLIC PROF - 2 Weeks CBC NO DIFF - 2 Weeks X-RAY CHEST PA & LAT - 2 Weeks New Medications: Amiodarone (Amiodarone) 200 Mg Tab 200 MG PO Q12HR heart rhythm #28 Ref 0 TAB Docusate Sodium (Dok) 100 Mg Cap 100 MG PO BID Constipation #60 Ref 0 CAP Multiple Vitamins W/ Minerals (Thera M Plus) 1 Tab 1 TAB PO DAILY multi vitamin #30 Ref 1 TAB Tamsulosin (Flomax) 0.4 Mg Cap 0.4 MG PO DAILY urinary retention #30 Ref 2 CAP Continued Medications: Allopurinol (Allopurinol) 300 Mg Tab 300 MG PO DAILY Gout #30 Ref 0 TAB Aspirin (Aspirin) 81 Mg Chew 81 MG CHEW DAILY Ref 0 TAB Atenolol (Atenolol) 25 Mg Tab 25 MG PO BID Blood Pressure Management #60 Ref 1 TAB Atorvastatin (Atorvastatin) 20 Mg Tab 20 MG PO HS Cholesterol Management #30 Ref 0 TAB Clopidogrel (Plavix) 75 Mg Tab 75 MG PO DAILY Blood Clot Prevention #30 Ref 0 TAB Nancy Carroll Jun 13, 2016 13:35
[2016-06-13] MEDS: ATORVASTATIN 20 MG TAB PO SCH (21:50)
[2016-06-13] MEDS: SENNOSIDES 8.6 MG TAB PO SCH (21:50)
[2016-06-13] MEDS: SODIUM CHLORIDE 0.9% FLUSH 10 ML FLUSH IV FLUSH PRN (21:51)
[2016-06-14] VITALS (17 sets, daily range): BP systolic 117–143; BP diastolic 64–89; PULSE 82–102; RESP 18; TEMP 98.4–98.7; O2SAT 93–97
[2016-06-14] MEDS: INSULIN ASPART SUPPLEMENTAL SCALE SQ SCH ×2 (05:43→11:00)
[2016-06-14] MEDS: PANTOPRAZOLE SOD 40 MG DELAYED RELEASE TAB PO SCH (06:16)
[2016-06-14] MEDS: CLOPIDOGREL 75 MG TAB PO SCH (09:00)
[2016-06-14] MEDS: DOCUSATE SODIUM 100 MG CAP PO SCH (09:00)
[2016-06-14] MEDS: POLYETHYLENE GLYCOL 17 GM PKG PO SCH (09:00)
[2016-06-14] MEDS: MAGNESIUM HYDROXIDE SUSP 30 ML CUP PO SCH (09:00)
[2016-06-14] MEDS: ALLOPURINOL 300 MG TAB PO SCH (09:01)
[2016-06-14] MEDS: METOPROLOL TARTRATE 25 MG TAB PO SCH (09:01)
[2016-06-14] MEDS: TAMSULOSIN HCL 0.4 MG CAP PO SCH (09:01)
[2016-06-14] MEDS: MULTIVITAMINS/MINERALS THERAPEUTIC TAB PO SCH (09:01)
[2016-06-14] MEDS: AMIODARONE 200 MG TAB PO SCH (09:01)
[2016-06-14] MEDS: ASPIRIN 81 MG CHEW TAB PO SCH (09:27)
--- NOTE | 2016-06-14 09:28 | PD.CAR.PN ---
CVT Progress Note Subjective/Hospital Course: 75/ male hx of CAD , recurrent chest pain, s/p AVR CABG x 26 July 2015, underwent cardiac cath 05/03/16 revealed patent svg to LAD RCA critical ostial stenosis tissue aortic valve was impinging on the Left main as well as RCA PMH: , CAD, HTN, HLP, on plavix at home surgery: 06/10 REDO CABG x 2, SVG to RCA, SVG to OM, EVH, THIERRY + steroids in OR, 2000cc crystalloid , 1000cc cell saver, EBL 1200cc extubated after surgery 06/11 pt up in chair, pain controlled, sinus tach BP stable wean 02, diuresis, add BB will dc richard, salmon cath transfer to stepdown 06/12 pt had some urinary retention required straight cath/ UA neg/ started on flomax bladder scanned later / 700 residual urine salmon cath replaced/ will consult Urology +6kg from surgery , continue diuresis additional GI meds ordered 06/13 salmon cath remains in place/ Urology consult pending remains on flomax + BM eval for dc to rehab tomorrow , after urology eval will dc lasix K+ replaced 06/14 D/C today Objective: Vital Signs Date Time Temp Pulse Resp B/P Pulse Ox O2 Delivery O2 Flow Rate FiO2 06/14/16 06:00 92 06/14/16 05:00 90 06/14/16 04:00 88 06/14/16 03:35 94 18 124/77 93 06/14/16 03:00 90 06/14/16 02:00 88 06/14/16 01:00 90 06/14/16 00:00 94 06/13/16 23:30 102 18 110/64 94 06/13/16 23:00 98 06/13/16 22:15 21 06/13/16 22:00 106 06/13/16 21:00 106 06/13/16 20:00 94 Nasal Cannula 2.00 06/13/16 20:00 106 06/13/16 19:30 98.5 114 18 99/55 94 06/13/16 19:00 128 06/13/16 18:00 98 06/13/16 17:00 110 06/13/16 16:00 98.2 106 16 106/63 92 06/13/16 16:00 110 06/13/16 15:00 108 06/13/16 14:00 110 06/13/16 13:00 96 06/13/16 12:00 98.2 101 16 115/68 91 06/13/16 12:00 93 06/13/16 11:00 94 06/13/16 10:00 90 Result Diagram: 06/13/16 0350 06/13/16 0350 (1) CAD (coronary artery disease) (2) S/P CABG x 2 Plan: redo OOB ambulate, continue aggressive pulm toileting ASA, statin, BB amiodarone plavix CM eval for SNF / pt lives alone (3) Hyperlipidemia Plan: on statin (4) HX of AVR (5) Urinary retention Plan: salmon replaced after pt was straight cath earlier UA neg/ on flomax/ Urology consult pending Nathan Guan MD Jun 14, 2016 09:28
== END 2016-06-14 13:12 | DRG 236 ==
LOC: HSDI 06-10 05:59 → HCVR 06-10 14:25 → HCIN 06-11 10:15
PROVIDERS: ADMIT Thoracic Surgery (Cardiothoracic Vascular Surgery); ATTEND Thoracic Surgery (Cardiothoracic Vascular Surgery)
PROC: 5A1221Z Performance of Cardiac Output, Continuous (ICD-10-PCS; 2016-06-10)
PROC: B24BZZ4 Ultrasonography of Heart with Aorta, Transesophageal (ICD-10-PCS; 2016-06-10)
PROC: 021109W Bypass Coronary Artery, Two Arteries from Aorta with Autologous Venous Tissue, Open Approach (ICD-10-PCS; principal; 2016-06-10 07:57)
PROC: 06BP4ZZ Excision of Right Saphenous Vein, Percutaneous Endoscopic Approach (ICD-10-PCS; 2016-06-10 07:57)
DX: I25.10 Atherosclerotic heart disease of native coronary artery without angina pectoris (principal); R33.8 Other retention of urine; I10 Essential (primary) hypertension; N40.1 Benign prostatic hyperplasia with lower urinary tract symptoms; E78.5 Hyperlipidemia, unspecified; Z95.2 Presence of prosthetic heart valve; Z87.891 Personal history of nicotine dependence; Z79.02 Long term (current) use of antithrombotics/antiplatelets; Z95.1 Presence of aortocoronary bypass graft
CPT/HCPCS: 36430; 71010; 76937; 80048; 81001; 82948; 83735; 85014; 85025; 85027; 86850; 86900; 86901; 86920; 93005; 93318; 94002; 94150; 94640; 94664; 94667; 94668; J0690; J1644; J1815; J1940; J2150; J2250; J2720; J2765; J2930; J3010; J3370; J3475; J3480; J7120; P9016; P9047